=== PATIENT | female | born 1945 | race Caucasian/White ===

== ENCOUNTER 2022-05-01 08:14 | Outpatient (CLI) | payer MEDICARE, OTHER, SELFPAY ==
[2022-05-01 08:31] LABS: Basophils Absolute Auto 0.1 K/mm3 (0.0-0.1); Basophils Percent Auto 1.1 % (0.2-1.2); Eosinophils Absolute Auto 0.1 K/mm3 (0-0.3); Eosinophils Percent Auto 1.1 % (0-4.4); Hematocrit 33.1 % (37.0-47.0); Hemoglobin 11.1 g/dL (12.0-15.0); Immature Granulocyte Absolute 0.02 K/mm3 (0.00-0.031); Immature Granulocyte Percent A 0.3 % (0-0.5); Lymphocytes Absolute Auto 0.65 K/mm3 (0.9-3.2); Lymphocytes Percent Auto 10.6 % (18.3-44.2); Mean Corpuscular HGB Conc 33.5 g/dl (32-36); Mean Corpuscular Hemoglobin 31.7 pg (26-34); Mean Corpuscular Volume 94.6 fl (80-100); Monocytes Absolute Auto 1.1 K/mm3 (0.1-0.6); Neutrophils Absolute Auto 4.2 K/mm3 (1.3-6.7); Neutrophils Percent Auto 68.9 % (45.5-73.1); Platelet Count Result 359 k/mm3 (150-375); Red Cell Distribution Width 17.4 % (11.5-14.5); White Blood Count 6.1 K/mm3 (4.5-10.0)
[2022-05-01 11:03] LABS: Alanine Aminotransferase 22 U/L (6-35); Albumin Level 4.5 g/dL (3.5-5.1); Alkaline Phosphatase 74 U/L (38-126); Anion Gap 8 mmol/L (8-16); Aspartate Amino Transferase 39 U/L (14-36); Bilirubin,Total 0.6 mg/dL (0.2-1.3); Blood Urea Nitrogen 13 mg/dL (7-17); Calcium 9.3 mg/dL (8.4-10.2); Carbon Dioxide 29 mmol/L (22-30); Chloride 101 mmol/L (98-107); Estimated Glomerular Filt Rate > 60; Glucose 86 mg/dL (65-110); Potassium 3.6 mmol/L (3.4-5.0); Sodium 138 mmol/L (137-145)
== END 2022-05-01 08:15 | disposition home or self-care (01) ==
LOC: ANHLAB 08:14
PROVIDERS: Visit Provider Internal Medicine Hematology & Oncology
DX: C34.90 Malignant neoplasm of unspecified part of unspecified bronchus or lung (principal)
CPT/HCPCS: 36415; 80053; 85025

== ENCOUNTER 2022-05-03 08:40 | Outpatient (CLI) | payer MEDICARE, OTHER, SELFPAY ==
--- NOTE | ~2022-05-03 | NM_ITS ---
NM bone scan whole body INDICATION: Metastatic non-small cell lung cancer. History of malignant melanoma. TECHNIQUE: The patient was injected with 25 mCi Tc 99m HDP. Gamma camera images of the region of int erest and whole body were obtained. COMPARISON: Pet/CT dated 01/18/2011 FINDINGS: There is abnormal radiotracer uptake in the lower thoracic spine, possibly T11. There is mi ld symmetric uptake in the shoulders and knees, likely degenerative joint disease. There is a focus o f mild uptake in the left pelvis near the sacroiliac joint. IMPRESSION: 1: Moderate uptake in the lower thoracic spine, possibly T11. Mild focal uptake in the left pelvis n ear the sacroiliac joint. Findings are suspicious for metastatic disease. Recommend plain film correl ation. Reviewed, dictated and finalized at location A. TRICAL DESIGNER DRAFTER IMPRESSION: 1: Moderate uptake in the lower thoracic spine, possibly T11. Mild focal uptak e in the left pelvis near the sacroiliac joint. Findings are suspicious for met astatic disease. Recommend plain film correlation.
== END 2022-05-03 08:41 | disposition home or self-care (01) ==
PROVIDERS: PCP Family Medicine; Visit Provider Internal Medicine Hematology & Oncology
DX: C34.90 Malignant neoplasm of unspecified part of unspecified bronchus or lung (principal)
CPT/HCPCS: 78306; A9561

== ENCOUNTER 2022-05-04 12:58 | Outpatient (CLI) | payer MEDICARE, OTHER, SELFPAY ==
--- NOTE | ~2022-05-04 | CT_ITS ---
EXAMINATION: CT chest abdomen pelvis w con DATE: 05/04/2022 20:06 CONSUMER ADVOCATE INDICATION: Non-small cell lung cancer. TECHNIQUE: Computed tomography (CT) of the chest, abdomen, and pelvis was performed with 100 cc Omnip aque 350 intravenous contrast. The dose-length product was 504.39 mGy-cm. Automated exposure control and iterative reconstruction technique were employed. COMPARISON: Bone scan dated 05/03/2022 and pet/CT scan dated 01/18/2011 FINDINGS: CHEST CT: There is emphysema. There is an irregular shaped mass in the right upper lobe abutting the fissure me asuring 1.5 x 2.8 x 4.5 cm. There are patchy areas of groundglass opacification throughout the right lung. There is a 1.5 cm groundglass nodule in the right lower lobe, image 85. There are coarse inters titial changes of the right lower lobe. There is dependent atelectasis in the left lower lobe. There is a small left pleural effusion. No thoracic lymphadenopathy. There is a small hiatal hernia. ABDOMEN/PELVIS CT: The liver, spleen, pancreas, adrenal glands and right kidney are unremarkable. There is a small subce ntimeter hypovascular lesion of the left kidney, most likely benign cysts. There is diffuse atheroscl erosis of the aorta without evidence for aneurysm or dissection. Gallbladder is present. There are bi lateral enlarged external iliac chain lymph nodes, largest on the left measuring 1.7 x 1.4 cm. The bl adder is unremarkable. There is moderate colonic fecal loading. No obstruction. Small fat-containing umbilical hernia. There are multiple sclerotic lesions of the femurs proximally, bilaterally in the p genevieve and sacrum as well as multiple thoracic and lumbar vertebra, consistent with sclerotic metastas es. There is a sclerotic foci in the sternum. There are bilateral sclerotic lesions of the scapula an d proximal aspect of the left humerus. IMPRESSION: 1. Irregular shaped right upper lobe mass measuring 4.5 x 2.8 x 1.5 cm abutting the fissure, likely c orresponding to patient's known malignancy. 2: Patchy groundglass opacities throughout the right lung which may relate relate to small airway di sease, infection or metastatic disease. 3: Innumerable sclerotic lesions throughout the visualized osseous structures, consistent with widesp read sclerotic metastases. 4: Bilateral pelvic lymph node enlargement, possibly metastatic disease. 5: Emphysema. Reviewed, dictated and finalized at location A. UMER ADVOCATE IMPRESSION: 1. Irregular shaped right upper lobe mass measuring 4.5 x 2.8 x 1.5 cm abutting the fissure, likely corresponding to patient's known malignancy. 2: Patchy groundglass opacities throughout the right lung which may relate rel ate to small airway disease, infection or metastatic disease. 3: Innumerable sclerotic lesions throughout the visualized osseous structures, consistent with widespread sclerotic metastases. 4: Bilateral pelvic lymph node enlargement, possibly metastatic disease. 5: Emphysema.
[2022-05-04 13:26] LABS: Estimated Glomerular Filt Rate > 60
== END 2022-05-04 12:59 | disposition home or self-care (01) ==
PROVIDERS: PCP Family Medicine; Visit Provider Internal Medicine Hematology & Oncology
DX: C34.90 Malignant neoplasm of unspecified part of unspecified bronchus or lung (principal); J43.9 Emphysema, unspecified; R91.8 Other nonspecific abnormal finding of lung field
CPT/HCPCS: 71260; 74177; Q9967

== ENCOUNTER 2022-06-11 09:26 | Outpatient (CLI) | payer MEDICARE, OTHER, SELFPAY ==
[2022-06-11 13:38] LABS: Cholesterol 172 mg/dL (0-200); HDL Direct 46 mg/dL; Triglycerides 112 mg/dL (<150)
[2022-06-11 13:49] LABS: LDL Cholesterol Direct 90 mg/dL
== END 2022-06-11 09:27 | disposition home or self-care (01) ==
LOC: ANHLAB 09:29
PROVIDERS: PCP Internal Medicine Hematology & Oncology; Visit Provider Internal Medicine Cardiovascular Disease
DX: E78.5 Hyperlipidemia, unspecified (principal)
CPT/HCPCS: 36415; 80061

== ENCOUNTER 2022-08-06 06:38 | Outpatient (CLI) | payer MEDICARE, OTHER, SELFPAY ==
--- NOTE | ~2022-08-06 | CT_ITS ---
EXAMINATION: CT chest abdomen pelvis w con DATE: 08/06/2022 07:10 INDICATION: Metastatic non-small cell lung cancer. TECHNIQUE: Computed tomography (CT) of the chest, abdomen, and pelvis was performed with 100 mL Omnip aque 350 intravenous contrast. Automated exposure control and iterative reconstruction technique were employed. The dose-length product was 404.84 mGy-cm. COMPARISON: CT 05/04/22, PET/CT 01/18/11 FINDINGS: CHEST CT: There is moderate emphysema. A calcified right lung nodule and calcified right hilar lymph nodes are consistent with old granulomatous disease. There are scattered groundglass opacities in all lobes. Th ere are small airspace opacities in left lower lobe. There is mild scarring at the lung apices. There is a 4.6 x 3.1 cm mass in posterior segment right upper lobe, stable from 05/04/2022. There is a smal l left pleural effusion. There is a right internal jugular port with tip in superior vena cava. The h eart is small. There are coronary artery calcifications. No pericardial effusion. There are no pathol ogically enlarged lymph nodes. There is a small sliding hiatal hernia. There are multiple scattered s clerotic lesions of bone. ABDOMEN/PELVIS CT: The liver, gallbladder, spleen, pancreas, adrenal glands, are normal. There is cortical thinning of t he kidneys. There are cysts in left kidney measuring up to 14 mm. The appendix is not visualized. The re are no dilated loops of bowel. There are no pathologically enlarged lymph nodes. There is no free intraperitoneal fluid. There are surgical clips in right inguinal region. There are multiple scattere d sclerotic lesions of bone. IMPRESSION: 1. Right lung mass, stable from 05/04/2022, consistent with primary bronchogenic carcinoma and treatme nt changes. 2. Small left pleural effusion. 3. Multifocal lung disease, likely infection. 4. Scattered sclerotic lesions of bone, stable from 05/04/2022 and new from 01/18/2011, consistent with metastatic disease. Reviewed, dictated and finalized at location A. CHOOL SUBSTITUTE TEACHER IMPRESSION: 1. Right lung mass, stable from 05/04/2022, consistent with primary bronchogenic carcinoma and treatment changes. 2. Small left pleural effusion. 3. Multifocal lung disease, likely infection. 4. Scattered sclerotic lesions of bone, stable from 05/04/2022 and new from 01/18, consistent with metastatic disease.
--- NOTE | ~2022-08-06 | NM_ITS ---
EXAMINATION: NM bone scan whole body DATE: 08/06/2022 11:44 INDICATION: Metastatic non-small cell lung cancer TECHNIQUE: 27.2 mCi Tc-99m HDP was administered intravenously. Delayed whole-body scintigrams were o btained. COMPARISON: Bone scan dated 05/03/[address] chest, abdomen and pelvis dated 08/06/2022 and 05/04/2022 FINDINGS: No interval change in increased uptake associated with a sclerotic lesion at the T11 vertebral body w ith associated with a small sclerotic lesion in the left innominate bone The inferior aspect of the sacral joint which correspond to unchanged small sclerotic bone lesions on prior CT. No abnormal uptake associated with the many additional small sclerotic bone lesions throug hout the axial and appendicular skeleton. No new lesions identified. IMPRESSION: 1. Unchanged mild uptake which with chronic sclerotic lesions at T11 and in the left innominate bone consistent with chronic metastatic disease. No new bone lesions identified and there are many additio nal sclerotic likely metastatic bone lesions evident on prior CT which remain without increased uptak e. Reviewed, dictated and finalized at location A. OLE TACKER IMPRESSION: 1. Unchanged mild uptake which with chronic sclerotic lesions at T11 and in the left innominate bone consistent with chronic metastatic disease. No new bone l esions identified and there are many additional sclerotic likely metastatic bon e lesions evident on prior CT which remain without increased uptake.
== END 2022-08-06 06:39 | disposition home or self-care (01) ==
PROVIDERS: PCP Internal Medicine Hematology & Oncology; Visit Provider Internal Medicine Hematology & Oncology
DX: C34.90 Malignant neoplasm of unspecified part of unspecified bronchus or lung (principal); J90 Pleural effusion, not elsewhere classified; R91.8 Other nonspecific abnormal finding of lung field; R93.7 Abnormal findings on diagnostic imaging of other parts of musculoskeletal system
CPT/HCPCS: 71260; 74177; 78306; A9503; Q9967

== ENCOUNTER 2022-12-05 09:27 | Outpatient (CLI) | payer MEDICARE, OTHER, SELFPAY ==
--- NOTE | ~2022-12-05 | NM_ITS ---
EXAMINATION: NM bone scan whole body DATE: 12/05/2022 14:03 INDICATION: Cancer metastatic to bone TECHNIQUE: 25.5 mCi Tc-99m HDP was administered intravenously. Delayed whole-body scintigrams were o btained. COMPARISON: Bone scan dated 08/06/[address] dated 12/05/2022 FINDINGS: Persistent foci of increased uptake corresponding to sclerotic lesions in the T11 vertebral body and along the left sacroiliac joint. The remaining of numerous scattered sclerotic bone lesions without c orrelate on the bone scan consistent with treated metastatic disease. IMPRESSION: 1. Persistent mild uptake associated with sclerotic likely metastatic lesions at T11 and along the le ft sacroiliac joint. Many additional sclerotic likely chronic treated metastatic lesions seen on CT r emain occult on bone scan. No new lesions identified. Reviewed, dictated and finalized at location B. IMPRESSION: 1. Persistent mild uptake associated with sclerotic likely metastatic lesions a t T11 and along the left sacroiliac joint. Many additional sclerotic likely chr onic treated metastatic lesions seen on CT remain occult on bone scan. No new l esions identified.
--- NOTE | ~2022-12-05 | CT_ITS ---
Clinical Indication: Metastatic non-small cell lung carcinoma CT Scan of the Chest with Contrast: Technique: Contiguous sections were acquired throughout the chest after intravenous administration of 75 cc of Omnipaque 350. Dose reduction technique was used on this scan by utilizing automated exposu re control and iterative reconstruction technique. The dose-length product (DLP) was 151.50 mGy-cm. COMPARISON: 08/06/2022 Findings: There is no evidence of any significant mediastinal, hilar or axillary lymphadenopathy. There is no f illing defect in the pulmonary arterial tree to suggest pulmonary embolus. There is no evidence of ao rtic dissection or aneurysm. Small hiatal hernia noted. Minimal left pleural effusion present. No right pleural effusion. No pericardial effusion. There is evidence of prior left upper lobectomy. There is stable irregular somewhat masslike consolid ation in the posterior right upper lobe, which could reflect post therapy change/treated neoplasm. Th ere is a new 9 mm spiculated nodule in the right lower lobe (axial image 76). There is irregular dens ity in the left lower lobe, somewhat similar to prior exam. There is moderate emphysema. Images through the upper abdomen reveal no abnormalities. Scattered sclerotic osseous lesions are stable from prior exam. Impression: 9 mm spiculated nodule right lower lobe, new from prior exam. Given history, suspicious for metastati c lesion. Stable irregular masslike consolidation right upper lobe, which could reflect posttreatment change/tr eated neoplasm. Moderate emphysema with stable irregular airspace opacities in the left lower lobe, which could refle ct scarring or other chronic postinflammatory change. Stable sclerotic osseous lesions, suggestive of treated osseous metastatic disease. Status post left upper lobectomy. Minimal left pleural effusion. Reviewed, dictated and finalized at location . Impression: 9 mm spiculated nodule right lower lobe, new from prior exam. Given history, luna spicious for metastatic lesion. Stable irregular masslike consolidation right upper lobe, which could reflect p osttreatment change/treated neoplasm. Moderate emphysema with stable irregular airspace opacities in the left lower l obe, which could reflect scarring or other chronic postinflammatory change. Stable sclerotic osseous lesions, suggestive of treated osseous metastatic dise ase. Status post left upper lobectomy. Minimal left pleural effusion.
== END 2022-12-05 09:28 | disposition home or self-care (01) ==
LOC: ANHIMG 09:28
PROVIDERS: PCP Internal Medicine Hematology & Oncology; Visit Provider Internal Medicine Hematology & Oncology
DX: C34.90 Malignant neoplasm of unspecified part of unspecified bronchus or lung (principal); C79.51 Secondary malignant neoplasm of bone; J43.9 Emphysema, unspecified
CPT/HCPCS: 71260; 78306; A9503; Q9967

== ENCOUNTER 2022-12-25 07:08 | Outpatient (CLI) | payer MEDICARE, OTHER, SELFPAY ==
--- NOTE | 2022-12-25 07:36 | ECHO_ITS ---
Patient Info Name: Elzbieta Coy Age: 77 years : 1945 Gender: Female Ht: 66 in Wt: 141 lbs BSA: 1.73 m2 HR: 75 bpm BP: 133 / 80 mmHg Technical Quality: Fair Exam Date: 12/25/2022 7:50 AM Exam Location: [facility] Patient Status: Outpatient Admit Date: 12/25/2022 Staff Ordering Physician: Bal Mccullough DO Lock Technician: Radha Delarosa RDCS Attending Provider: Bal Mccullough DO Referring Physician: Jamel CARVAJAL; Exam Type: CA echo doppler color flow Study Info Indications R60.0 - Localized edema Complete two-dimensional, color flow and Doppler transthoracic echocardiogram is performed. Summary 1. Complete two-dimensional, color flow and Doppler transthoracic echocardiogram is performed. 2. Left ventricular chamber dimension is normal. 3. Left ventricular systolic function is normal, estimated at 65-70%. 4. The left ventricular diastolic function is grade I diastolic dysfunction. 5. E/e' 10 is mildly elevated. 6. Global longitudinal strain is abnormal at -13.0%. 7. There is mild aortic valve sclerosis. 8. The mitral valve has moderately calcified leaflets and moderate calcified annulus. 9. There is trace tricuspid valve regurgitation. 10. No pulmonary hypertension, estimated pulmonary arterial systolic pressure is 34 mmHg. 11. There is trace pulmonic regurgitation. 12. There is trace to small circumferential (right sided) pericardial effusion. Left Ventricle E/e' 10 is mildly elevated. Global longitudinal strain is abnormal at -13.0%. Left ventricular chamber dimension is normal. Left ventricular systolic function is normal, estimated at 65-70%. The left ventricular diastolic function is grade I diastolic dysfunction. Right Ventricle Right ventricular chamber dimension is normal. Right ventricular systolic function is normal. Left Atria Left atrial chamber dimension is normal. Right Atria Right atrial chamber dimension is normal. Aortic Valve The aortic valve is trileaflet. There is mild aortic valve sclerosis. There is no aortic valve stenosis. There is no aortic valve regurgitation. Pulmonic Valve There is trace pulmonic regurgitation. Mitral Valve The mitral valve has moderately calcified leaflets and moderate calcified annulus. There is no mitral valve stenosis. There is no mitral valve regurgitation. Tricuspid Valve There is trace tricuspid valve regurgitation. No pulmonary hypertension, estimated pulmonary arterial systolic pressure is 34 mmHg. Pericardium/Pleural There is trace to small circumferential (right sided) pericardial effusion. No cardiac tamponade. Inferior Vena Cava Normal inferior vena cava with >50% collapse upon inspiration consistent with normal right atrial pressure, 5 mmHg. Aorta The aortic root size at the sinus of Valsalva is normal. Left Ventricular Outflow Tract Name Value Normal LVOT 2D LVOT Diameter 1.9 cm LVOT Doppler LVOT Peak Gradient 4 mmHg LVOT Mean Gradient 2 mmHg LVOT VTI 20 cm LVOT VTI/AV VTI Ratio 0.8 LVOT Stroke Volume 54 ml LVOT CO 4
== END 2022-12-25 07:09 | disposition home or self-care (01) ==
LOC: ANHCARD 07:09
PROVIDERS: PCP Family Medicine; Visit Provider Internal Medicine Cardiovascular Disease
DX: R60.0 Localized edema (principal)
CPT/HCPCS: 93306

== ENCOUNTER 2023-02-25 09:12 | Outpatient (CLI) | payer MEDICARE, OTHER, SELFPAY ==
--- NOTE | ~2023-02-25 | NM_ITS ---
EXAMINATION: NM bone scan whole body DATE: 02/25/2023 13:20 INDICATION: Metastatic non-small cell lung cancer TECHNIQUE: 25.5 mCi Tc-99m HDP was administered intravenously. Delayed whole-body scintigrams were o btained. COMPARISON: Bone scan dated 12/05/2022, CT dated 08/06/2022 and 02/25/2023 FINDINGS: Persistent focus of moderate uptake along the left sacroiliac joint and T11 vertebral body associated with sclerotic lesions on CT dated 08/06/2022. There is a new focus of increased uptake at the L4 vert ebral body with corresponding sclerotic bone lesion on prior CT. There are multiple additional sclero tic bone lesions on CT which remain without increased uptake on the current study consistent with lor ated metastatic disease. IMPRESSION: 1. Unchanged uptake in the T11 vertebral body, along the left sacroiliac joint and new focus of incre ased uptake at the L4 spinous processes, each with corresponding sclerotic bone lesions consistent wi th metastatic disease. The increased uptake at these lesions in particular the new uptake at L4 are c oncerning for recurrent disease given that many of the additional sclerotic bone lesion seen on CT re maining without discernible uptake. Reviewed, dictated and finalized at location A. IMPRESSION: 1. Unchanged uptake in the T11 vertebral body, along the left sacroiliac joint and new focus of increased uptake at the L4 spinous processes, each with corres ponding sclerotic bone lesions consistent with metastatic disease. The increase d uptake at these lesions in particular the new uptake at L4 are concerning for recurrent disease given that many of the additional sclerotic bone lesion seen on CT remaining without discernible uptake.
--- NOTE | ~2023-02-25 | CT_ITS ---
EXAMINATION:CT diagnostic chest w con DATE: 02/25/2023 09:48 INDICATION: Metastatic non-small cell lung cancer. TECHNIQUE: Computed tomography (CT) of the chest was performed with 75 mL Omnipaque 350 intravenous c ontrast. Automated exposure control and iterative reconstruction technique were employed. The dose-le ngth product (DLP) was 148.29 mGy-cm. COMPARISON: Chest CT 12/05/2022, 08/06/22 FINDINGS: There is moderate emphysema. There are changes of left upper lobectomy. A calcified right l kylah nodule and calcified hilar lymph nodes are consistent with old granulomatous disease. There is ch ronic peripheral septal thickening in the lungs. There is a 6 mm nodule in right lower lobe, improved from 9 mm on 12/05/2022. There are groundglass opacities in the lower lobes. There are chronic airspac e opacities with volume loss involving posterior segment right upper lobe. There are small pleural ef fusions. The heart size is normal. There are coronary artery calcifications. No pericardial lesion. T here is a small sliding hiatal hernia. There is a right internal jugular port with tip in superior ve na cava. There are scattered sclerotic lesions of bone including the spine, scapulae, and sternum. Th ere is severe thoracic spondylosis. IMPRESSION: 1. Stable airspace opacities with volume loss in posterior segment right upper lobe, consistent with radiation fibrosis. 2. Moderate emphysema. 3. Stable sclerotic bone lesions, consistent with metastatic disease. 4. Stable small pleural effusions. 5. Right lung lower lobe nodule and bilateral lower lobe groundglass opacities with interval improvem ent, likely infection. Reviewed, dictated and finalized at location A. IMPRESSION: 1. Stable airspace opacities with volume loss in posterior segment right upper lobe, consistent with radiation fibrosis. 2. Moderate emphysema. 3. Stable sclerotic bone lesions, consistent with metastatic disease. 4. Stable small pleural effusions. 5. Right lung lower lobe nodule and bilateral lower lobe groundglass opacities with interval improvement, likely infection.
[2023-02-25 09:41] LABS: Estimated Glomerular Filt Rate > 60
== END 2023-02-25 09:13 | disposition home or self-care (01) ==
LOC: ANHIMG 09:17
PROVIDERS: PCP Family Medicine; Visit Provider Internal Medicine Hematology & Oncology
DX: C34.90 Malignant neoplasm of unspecified part of unspecified bronchus or lung (principal); J43.9 Emphysema, unspecified; J90 Pleural effusion, not elsewhere classified; R91.8 Other nonspecific abnormal finding of lung field
CPT/HCPCS: 71260; 78306; A9503; Q9967

== ENCOUNTER 2023-05-13 09:24 | Outpatient (CLI) | payer MEDICARE, OTHER, SELFPAY ==
--- NOTE | ~2023-05-13 | CT_ITS ---
Clinical Indication: Metastatic non-small cell lung cancer CT Scan of the Chest with Contrast: Technique: Contiguous sections were acquired throughout the chest after intravenous administration of 35 cc of Omnipaque 350. Dose reduction technique was used on this scan by utilizing automated exposu re control and iterative reconstruction technique. The dose-length product (DLP) was 164.60 mGy-cm. COMPARISON: 02/25/2023 Findings: There is no evidence of any significant mediastinal, hilar or axillary lymphadenopathy. There is no f illing defect in the pulmonary arterial tree to suggest pulmonary embolus. There is no evidence of ao rtic dissection or aneurysm. There are atherosclerotic calcifications of the aorta. Minimal left pleural effusion noted. No right pleural effusion. No pericardial effusion. Irregular, spiculated area of consolidation the right upper lobe is essentially stable from prior exa m (axial image 52). Stable emphysematous change and mild chronic interstitial change. Images through the upper abdomen reveal no abnormalities. Multiple scattered sclerotic osseous lesion s are similar to prior exam. Impression: Stable 4.5 cm area of irregular/spiculated consolidation the right upper lobe, which could reflect ne oplastic lesion versus treated disease. Stable sclerotic osseous lesions, consistent with osseous metastatic disease, possibly treated. Stable emphysema and mild chronic interstitial change. Minimal left pleural effusion. Reviewed, dictated and finalized at location M. ER DEMOLDER Impression: Stable 4.5 cm area of irregular/spiculated consolidation the right upper lobe, which could reflect neoplastic lesion versus treated disease. Stable sclerotic osseous lesions, consistent with osseous metastatic disease, p ossibly treated. Stable emphysema and mild chronic interstitial change. Minimal left pleural effusion.
== END 2023-05-13 09:25 | disposition home or self-care (01) ==
PROVIDERS: PCP Family Medicine; Visit Provider Internal Medicine Hematology & Oncology
DX: C34.90 Malignant neoplasm of unspecified part of unspecified bronchus or lung (principal); J43.9 Emphysema, unspecified; R91.8 Other nonspecific abnormal finding of lung field
CPT/HCPCS: 71260; Q9967

== ENCOUNTER 2023-07-01 10:41 | Outpatient (CLI) | payer MEDICARE, OTHER, SELFPAY ==
--- NOTE | ~2023-07-01 | XR_ITS ---
Clinical Indication: Nausea PA and lateral views of the chest: Comparison: None Findings: Right-sided Mediport in place. There is a somewhat streaky airspace opacity in the right up per lobe.. Cardiomediastinal silhouette is within normal limits. Sclerotic osseous lesions are noted scattered in the spinal lateral view. Impression: Somewhat streaky right upper lobe airspace opacity, indeterminate. This could reflect post therapy ch grayson/treated disease and/or scarring, however underlying active neoplasm or pneumonia are not exclude d. Correlate clinically. Scattered sclerotic osseous lesions in the spine on lateral view, which could reflect treated metasta tic osseous disease. Reviewed, dictated and finalized at location M. CIPLE SOFTWARE ENGINEER Impression: Somewhat streaky right upper lobe airspace opacity, indeterminate. This could r eflect post therapy change/treated disease and/or scarring, however underlying active neoplasm or pneumonia are not excluded. Correlate clinically. Scattered sclerotic osseous lesions in the spine on lateral view, which could r eflect treated metastatic osseous disease.
--- NOTE | ~2023-07-01 | XR_ITS ---
EXAM: XR abdomen obstructive series DATE: 07/01/2023 11:09 HISTORY: CONSTIPATION . COMPARISON: CT cap 08/06/2022. FINDINGS: Senescent change and left basilar scar. Normal bowel gas pattern. Enlarged liver. Vascular calcifications. Multiple sclerotic lesions in the bones. Degenerative changes in the spine. IMPRESSION: No radiographic evidence of obstruction or ileus.. Reviewed, dictated and finalized at location K. MAKER
== END 2023-07-01 10:42 | disposition home or self-care (01) ==
PROVIDERS: PCP Family Medicine; Visit Provider Internal Medicine Hematology & Oncology
DX: K59.00 Constipation, unspecified (principal); R91.8 Other nonspecific abnormal finding of lung field
CPT/HCPCS: 36415; 71046; 74019; 80047; 80053; 85025; 86480; 96413; J9271

== ENCOUNTER 2023-07-27 16:01 | Emergency (ER) | payer MEDICARE, OTHER, SELFPAY ==
[2023-07-27] VITALS (42 sets, daily range): BP systolic 100–170; BP diastolic 55–123; PULSE 76–125; RESP 13–34; TEMP 36.6; O2SAT 96–100
--- NOTE | ~2023-07-27 | XR_ITS ---
EXAMINATION: XR chest 2V Exam Date/Time: 07/27/2023 16:35 [employer]GRAM [employer]GER [employer] HISTORY: weakness, n/v/d, current chemo for bone cancer Comparison: 07/01/2023. RESULT: Lines, tubes, and devices: Right chest port, in good position. Lungs and pleura: Emphysematous/senescent change. Right upper lung scar. Bilateral costophrenic angl e blunting. Cardiomediastinal silhouette: Stable. Other: No acute osseous or upper abdominal finding. Sclerotic vertebral metastases. IMPRESSION: Small bilateral effusions versus chronic pleural blunting. Reviewed, dictated and finalized at location K. [employer]
--- NOTE | 2023-07-27 16:16 | ECG_ITS ---
Measurements Intervals [place] Rate: 108 P: 91 CA: 145 QRS: 75 QRSD: 77 T: 89 QT: 277 QTc: 372 Interpretive Statements SINUS TACHYCARDIA BASELINE ARTIFACT POSSIBLE LEFT ATRIAL ENLARGEMENT [-0.1mV P-WAVE IN V1/V2] LOW QRS VOLTAGE IN PRECORDIAL LEADS [QRS DEFLECTION < 1.0 mV IN CHEST LEADS] ABNORMAL ECG SEPTAL MYOCARDIAL INFARCTION , OF INDETERMINATE AGE [40+ ms Q WAVE IN V1/V2] NO PREVIOUS ECG AVAILABLE FOR COMPARISON Electronically Signed On 07-28-2023 18:01:14 TAX APPRAISER by Joaquin Infante M.D.
[2023-07-27 17:03] LABS: Basophils Percent Auto 0.6 % (0.2-1.2); Eosinophils Absolute Auto 0.1 K/mm3 (0-0.3); Eosinophils Percent Auto 0.9 % (0-4.4); Hemoglobin 13.4 g/dL (12.0-15.0); Immature Granulocyte Absolute 0.02 K/mm3 (0.00-0.031); Immature Granulocyte Percent A 0.3 % (0-0.5); Lymphocytes Absolute Auto 0.53 K/mm3 (0.9-3.2); Lymphocytes Percent Auto 7.9 % (18.3-44.2); Mean Corpuscular HGB Conc 36.2 g/dl (32-36); Mean Corpuscular Hemoglobin 31.5 pg (26-34); Mean Corpuscular Volume 86.9 fl (80-100); Mean Platelet Volume 9.7 fl (7.4-10.4); Monocytes Absolute Auto 0.2 K/mm3 (0.1-0.6); Monocytes Percent Auto 2.7 % (2.6-8.5); Neutrophils Absolute Auto 5.8 K/mm3 (1.3-6.7); Neutrophils Percent Auto 87.6 % (45.5-73.1); Platelet Count Result 265 k/mm3 (150-375); Red Blood Count 4.26 M/mm3 (4.2-5.4); Red Cell Distribution Width 14.6 % (11.5-14.5); White Blood Count 6.7 K/mm3 (4.5-10.0)
[2023-07-27 17:12] LABS: Alanine Aminotransferase 20 U/L (6-35); Albumin Level 4.5 g/dL (3.5-5.1); Alkaline Phosphatase 75 U/L (38-126); Anion Gap 7 mmol/L (8-16); Aspartate Amino Transferase 36 U/L (14-36); Bilirubin,Total 1.5 mg/dL (0.2-1.3); Blood Urea Nitrogen 19 mg/dL (7-17); Carbon Dioxide 26 mmol/L (22-30); Chloride 98 mmol/L (98-107); Estimated CRCL calculation 60 ml/min; Estimated Glomerular Filt Rate > 60; Glucose 111 mg/dL (65-110); Potassium 3.6 mmol/L (3.4-5.0); Sodium 131 mmol/L (137-145)
--- NOTE | 2023-07-27 17:33 | ED.WEAKNESS ---
HPI - Weakness General Chief complaint: Weakness Stated complaint: weakness Time Seen by Provider: 07/27/23 16:20 History of Present Illness HPI Narrative: Patient is a 77-year-old female with a history of lung cancer on chemotherapy presenting with weakness. Patient states that she has been nauseated with no appetite since her chemotherapy treatment on Saturday. States that she has actually had the symptoms for many months but she has not brought them up to her oncologist. States that she has only been able to eat a small amount of Jell-O this week. States that she has had several episodes of loose stools as well as an episode of vomiting. Her sister is concerned as she is increasingly weak and is now having trouble getting around. Patient denies pain. No chest pain, abdominal pain. States that she does sometimes feel short of breath. No leg swelling. Related Data Home Medications Medication Instructions Recorded Confirmed aspirin 81 mg tablet 81 mg PO DAILY 05/10/22 07/22/23 biotin 10,000 mcg capsule 10,000 mcg PO DAILY 05/10/22 07/22/23 calcium carb-ergocalciferol (vit 600 tablet PO DAILY 05/10/22 07/22/23 D2) 600 mg calcium-200 unit tablet folic acid 1 mg tablet 1 mg PO DAILY 05/10/22 07/22/23 omega-3 fatty acids-vitamin E 1,000 cap PO DAILY 05/10/22 07/22/23 1,000 mg capsule vit C 250 mg-vit E 90 mg-zinc 40 1 tablet PO BID 05/10/22 07/22/23 mg-copper 1 cp-oacfud-zicxfi capsule (PreserVision AREDS-2) pembrolizumab 25 mg/mL intravenous 400 mg IV .q3 weeks 05/17/22 07/22/23 solution (Keytruda) potassium chloride 20 mEq 20 meq PO DAILY 06/11/22 07/22/23 tablet,extended release Allergies Allergy/AdvReac Type Severity Reaction Status Date / Time No Known Allergies Allergy Verified 07/27/23 16:23 Review of Systems Review of Systems: All systems reviewed & are unremarkable except as noted in HPI and below PMFSH Past Medical History Medical History Anemia due to chemotherapy Benign essential HTN Emphysema lung HH (hiatus hernia) History of tobacco abuse Lung cancer Left and later R, most recently L agan. Malignant melanoma of right thigh Surgical History Surgical History History of appendectomy History of melanoma excision S/P partial lobectomy of lung Family History Family History Other Diabetes mellitus Hypertension Social History Social History Social History: Single Smoking packs per day: 0.5 Smoking cigarettes per day: 10.0 Years smoked: 30 Smoking pack-years: 15.00 Smoking status: Former smoker Tobacco type: cigarettes Second hand tobacco smoke exposure: No Smoking end date: 03/12/11 Alcohol intake: never Substance use: never Substance use type: does not use Living arrangements: with family Additional living arrangements comments: Pt lives with her sister. Occupation/Education: retired Gender identity (if verbalized by the patient): Female Sexual Orientation (if Verbalized by the Patient): Straight or Heterosexual Spiritual care concerns: No Exam Narrative: GENERAL: Frail, nontoxic, no acute distress HEAD: Normocephalic, atraumatic. EYES: PERRLA and EOMI. ENT: Mucous membranes moist. NECK: Supple. CHEST: no respiratory distress, diminished breath sounds bilaterally; port upper R chest HEART: Regular rate and rhythm ABDOMEN: Soft, nontender, nondistended EXTREMITIES: Normal range of motion. No edema. SKIN: Warm, dry, no rash. NEURO: No focal deficits. Alert and oriented x3. PSYCH: Normal mood and affect. Course Vital Signs Vital signs: Vital Signs Temperature 97.9 F 07/27/23 16:11 Pulse Rate 125 H 07/27/23 16:11 Respiratory Rate 20 07/27/23 16:11 Blood Pressure 138/79
[2023-07-27 17:43] LABS: Lipase 134 U/L (23-300); Magnesium 2.8 mg/dL (1.6-2.3)
[2023-07-27] MEDS: SODIUM CHLORIDE 0.9% IV 1,000 ML 999 ML IV CONT ×2 (17:46→18:32)
[2023-07-27] MEDS: ONDANSETRON INJ 4 MG/2 ML VIAL IV PUSH (17:46)
[2023-07-27 17:52] LABS: INR 0.9; Partial Thromboplastin Time 33.2 SECONDS (22.3-36.8)
[2023-07-27 17:56] LABS: NT Pro B Type Natriuretic Pept 84 pg/mL (19.9-100); Troponin I < 0.012 ng/mL (0.000-0.034)
[2023-07-27 18:31] LABS: Appearance Urine Clear (Clear); Bacteria Urine None Seen /hpf; Bilirubin Urine Negative (Negative); Blood Urine Negative (Negative); Color Urine Yellow (Yellow); Glucose Urine UA Negative (Negative); Ketones Urine 1+ mg/dL (Negative); Leukocyte Esterase Ur Trace LEU/UL (Negative); Nitrate Urine Negative (Negative); Non Pathogenic Casts 0-2; Protein Urine Negative (Negative); RBC Urine 0-2 /hpf (0-2); Specific Grav Ur 1.014 (1.001-1.035); Squamous Epithelial Cell Urine None seen /hpf (Few); Urobilinogen Urine 0.2 mg/dL (<2.0); WBC Urine 0-5 /hpf
[2023-07-27 18:40] LABS: Add Urine Microscopic? YES
[2023-07-27 18:45] LABS: Influenza A QL RT-PCR Negative (Negative); Influenza B QL RT-PCR Negative (Negative); RSV RNA, RT-PCR Negative (Negative); SARS-CoV-2 RNA PCR Negative (Negative)
--- NOTE | 2023-07-27 19:00 | PC.NURSE ---
RN bedside report given by HEBER Lake to HEBER Ramirez. Pt a+ox4, no distress needed. Pt wheeled to restroom at this time. Pt ambulated from wheelchair in the door way to toilet without difficulty. Pt returned to bed at this time. No current needs.
[2023-07-27 20:43] LABS: Troponin I < 0.012 ng/mL (0.000-0.034)
--- NOTE | 2023-07-27 21:15 | PC.NURSE ---
Pt PO challenged with apple sauce, crackers, and juice. Pt able to keep those down and feels ok. No nausea noted by pt at this time.
== END 2023-07-27 21:42 | disposition home or self-care (01) ==
PROVIDERS: Emergency Medicine; Emergency Provider Emergency Medicine; PCP Family Medicine
DX: R11.2 Nausea with vomiting, unspecified (principal); R63.0 Anorexia; Z68.21 Body mass index [BMI] 21.0-21.9, adult; C34.92 Malignant neoplasm of unspecified part of left bronchus or lung; C79.51 Secondary malignant neoplasm of bone; R06.02 Shortness of breath; D64.81 Anemia due to antineoplastic chemotherapy; I10 Essential (primary) hypertension; J43.9 Emphysema, unspecified; Z85.820 Personal history of malignant melanoma of skin; Z87.891 Personal history of nicotine dependence; Z90.2 Acquired absence of lung [part of]; Z79.60 Long term (current) use of unspecified immunomodulators and immunosuppressants; Z79.82 Long term (current) use of aspirin; R94.31 Abnormal electrocardiogram [ECG] [EKG]; R00.0 Tachycardia, unspecified
CPT/HCPCS: 36415; 71046; 80053; 81001; 83690; 83735; 83880; 84484; 85025; 85610; 85730; 87637; 93005; 96361; 96374; 99284; J2405; J7030

== ENCOUNTER 2023-08-26 08:52 | Outpatient (CLI) | payer MEDICARE, OTHER, SELFPAY ==
--- NOTE | ~2023-08-26 | CT_ITS ---
EXAMINATION:CT diagnostic chest w con DATE: 08/26/2023 09:19 INDICATION: Metastatic non-small cell lung cancer. TECHNIQUE: Computed tomography (CT) of the chest was performed with 75 mL Omnipaque 350 intravenous c ontrast. Automated exposure control and iterative reconstruction technique were employed. The dose-le ngth product (DLP) was 141.67 mGy-cm. COMPARISON: Chest CT 05/13/2023 FINDINGS: There is severe emphysema. There is mild atelectasis bilaterally. There are airspace opacit ies in posterior segment right upper lobe with architectural distortion, consistent with radiation fi brosis. A calcified right lung nodule and calcified right hilar lymph nodes are consistent with old g ranulomatous disease. There is mild scarring at the lung apices. There are changes of left upper lobe ctomy. There are trace right and small left pleural effusions. The heart size is normal. No pericardi al effusion. There are coronary artery calcifications. There is a small sliding hiatal hernia. Aortic atherosclerosis is noted. There is a right internal jugular port with tip in superior vena cava. The re are multiple scattered sclerotic lesions of bone, consistent with metastatic disease. IMPRESSION: 1. Stable osseous metastatic disease. 2. Stable small left pleural effusion. 3. Severe emphysema. Reviewed, dictated and finalized at location E.
== END 2023-08-26 08:53 | disposition home or self-care (01) ==
LOC: ANHIMG 08:55
PROVIDERS: PCP Family Medicine; Referring Provider Nurse Practitioner Family; Visit Provider Internal Medicine Hematology & Oncology
DX: C34.90 Malignant neoplasm of unspecified part of unspecified bronchus or lung (principal); J43.9 Emphysema, unspecified; J90 Pleural effusion, not elsewhere classified
CPT/HCPCS: 71260; Q9967

== ENCOUNTER 2023-10-12 10:18 | Emergency (ER) | payer MEDICARE, OTHER, SELFPAY ==
[2023-10-12] VITALS (33 sets, daily range): BP systolic 113–144; BP diastolic 61–79; PULSE 66–122; RESP 12–37; TEMP 36.8; O2SAT 98–100
--- NOTE | ~2023-10-12 | CT_ITS ---
EXAMINATION: CT brain wo con DATE: 10/12/2023 11:15 INDICATION: Multiple falls. Headache and dizziness. Generalized weakness. TECHNIQUE: Computed tomography (CT) of the head was performed without intravenous contrast. The mA wa s adjusted according to patient size. Iterative reconstruction technique was employed. Exam dose: 60 5.33 mGy-cm total exam DLP. COMPARISON: None FINDINGS: Prominent bilateral carotid siphon internal carotid artery calcifications. There is nonspecific diminished attenuation of the cerebral white matter, likely due to chronic small vessel ischemic changes. No intracranial mass lesion or hemorrhage. Lacunar infarct right thalamus. No other cerebrovascular accident is evident. No midline shift or mas s defect. No subdural or epidural hematoma. No fracture of the cranial vault. There are several osteosclerotic foci of the cranial vault; osteosc lerotic metastases are not excluded. Consider radionuclide bone scan if clinically appropriate. IMPRESSION: No skull fracture or acute traumatic intracranial finding is evident Several osteosclerotic lesions of the skull; osseous chronic metastases are not excluded. Consider ra dionuclide bone scan as clinically appropriate Cerebral atherosclerosis and chronic small vessel ischemic changes in the cerebral white matter Lacunar infarct of right thalamus Reviewed, dictated and finalized at [facility]. Reviewed, dictated and finalized at location A. IMPRESSION: No skull fracture or acute traumatic intracranial finding is evide nt Several osteosclerotic lesions of the skull; osseous chronic metastases are not excluded. Consider radionuclide bone scan as clinically appropriate Cerebral atherosclerosis and chronic small vessel ischemic changes in the cereb ral white matter Lacunar infarct of right thalamus
--- NOTE | ~2023-10-12 | XR_ITS ---
XR chest 1V portable DATE: 10/12/2023 13:35 INDICATION: Shortness of breath TECHNIQUE: Portable AP chest on 10/12/2023 1325 hours COMPARISON: 08/26/2023 CT chest 07/27/2023 2 chest FINDINGS: Right-sided Port-A-Cath catheter tip overlies the superior vena cava. Heart size is within normal range. Prominent aortic arch as well as the descending thoracic aortic ca lcification. There is relative volume loss in the left lung compared to the right with mild elevation left hemidia phragm, leftward shift of heart or mediastinum. There is increased density overlying the right mid-upper lung which may be due to neoplasm or scarrin g. No active infiltrate or consolidation is noted. Minimal blunting the costophrenic angles is again not ed, chronic. Osteopenia. DEXA scoliosis and degenerative change of the thoracic spine. IMPRESSION: Little interval change since 07/27/2023 Reviewed, dictated and finalized at location A.
--- NOTE | ~2023-10-12 | CT_ITS ---
EXAMINATION: CTA chest PE protocol DATE: 10/12/2023 15:15 INDICATION: sob TECHNIQUE: Computed tomography angiography (CTA) of the chest was performed with 100 mL Omnipaque-350 intravenous contrast timed to evaluate the pulmonary arteries. Coronal maximum intensity projection 3D-reconstructions were created by the technologist. The dose-length product (DLP) was 185.01 mGy-cm. Automated exposure control and iterative reconstruction technique were employed. COMPARISON: None. FINDINGS: Lung parenchyma and airways: Emphysematous change. Changes of left upper lobectomy. Right upper lobe posterior segment masslike opacity with spiculated margins measuring 4.0 x 4.1 x 1.4 cm, slightly inc reased in size. Pleura: Small left pleural effusion. Thoracic inlet, axillae and chest wall: Unremarkable. Thoracic aorta: No significant dilation. No dissection. Mediastinum: Small hiatal hernia. Heart and pericardium: Mitral calcification. Coronary artery calcifications: Absent. Upper abdomen: No significant finding. Bones: No acute osseous finding. Multiple sclerotic lesions. Chronic superior and inferior endplate d eformities at T11. Pulmonary arteries: Study quality: Adequate. No pulmonary emboli detected. IMPRESSION: No CT evidence of acute pulmonary embolus. Severe emphysema. Increased size of the lung mass in the posterior segment right upper lobe possibly representing disea se progression. Stable osseous metastatic disease. Reviewed, dictated and finalized at location K. IMPRESSION: No CT evidence of acute pulmonary embolus. Severe emphysema. Increased size of the lung mass in the posterior segment right upper lobe possi marbella representing disease progression. Stable osseous metastatic disease.
[2023-10-12 10:57] LABS: Basophils Percent Auto 0.3 % (0.2-1.2); Eosinophils Absolute Auto 0.1 K/mm3 (0-0.3); Eosinophils Percent Auto 1.6 % (0-4.4); Hematocrit 34.4 % (37.0-47.0); Hemoglobin 11.6 g/dL (12.0-15.0); Immature Granulocyte Absolute 0.04 K/mm3 (0.00-0.031); Immature Granulocyte Percent A 0.6 % (0-0.5); Lymphocytes Absolute Auto 0.46 K/mm3 (0.9-3.2); Lymphocytes Percent Auto 7.2 % (18.3-44.2); Mean Corpuscular HGB Conc 33.7 g/dl (32-36); Mean Corpuscular Hemoglobin 31.8 pg (26-34); Mean Corpuscular Volume 94.2 fl (80-100); Mean Platelet Volume 9.7 fl (7.4-10.4); Monocytes Absolute Auto 1.1 K/mm3 (0.1-0.6); Monocytes Percent Auto 16.4 % (2.6-8.5); Neutrophils Absolute Auto 4.7 K/mm3 (1.3-6.7); Neutrophils Percent Auto 73.9 % (45.5-73.1); Platelet Count Result 362 k/mm3 (150-375); Red Blood Count 3.65 M/mm3 (4.2-5.4); White Blood Count 6.4 K/mm3 (4.5-10.0)
[2023-10-12 11:08] LABS: Prothrombin Time 13.3 Seconds (11.1-14.7)
[2023-10-12 11:09] LABS: Alanine Aminotransferase 18 U/L (6-35); Albumin Level 4.1 g/dL (3.5-5.1); Alkaline Phosphatase 73 U/L (38-126); Anion Gap 5 mmol/L (4-12); Aspartate Amino Transferase 27 U/L (14-36); Bilirubin,Total 0.7 mg/dL (0.2-1.3); Blood Urea Nitrogen 13 mg/dL (7-17); Calcium 9.3 mg/dL (8.4-10.2); Carbon Dioxide 26 mmol/L (22-30); Chloride 103 mmol/L (98-107); Estimated CRCL calculation 68 ml/min; Estimated Glomerular Filt Rate > 60; Glucose 107 mg/dL (65-110); Potassium 3.8 mmol/L (3.4-5.0); Sodium 134 mmol/L (137-145)
[2023-10-12 11:21] LABS: Troponin I < 0.012 ng/mL (0.000-0.034)
--- NOTE | 2023-10-12 11:55 | ED.GENADULT ---
HPI - General Adult General Chief complaint: Shortness of Breath/Dyspnea Stated complaint: WEAKNESS & SOB; Hx LUNG CANCER Time Seen by Provider: 10/12/23 10:30 Source: patient Mode of arrival: EMS Limitations: no limitations History of Present Illness HPI narrative: 78-year-old with history of lung CA, hypertension here with a complains of marked weakness, frequent falls. Patient states that she is no longer able to manage take care of herself because of generalized weakness which has been ongoing. She presently denies any headache, chest pain, abdominal pain. No history of nausea or vomiting. However she states that she has been trying to get into [facility] . She states that her elderly sister was 86 is unable to take care of her. She fell 2 days ago at home. No LOC denies neck pain. Onset (ago): week(s) Pain Consistency: constant Associated symptoms: denies other symptoms Treatments prior to arrival: none Related Data Home Medications Medication Instructions Recorded Confirmed aspirin 81 mg tablet 81 mg PO DAILY 05/10/22 09/30/23 calcium carb-ergocalciferol (vit 600 tablet PO DAILY 05/10/22 09/30/23 D2) 600 mg calcium-200 unit tablet omega-3 fatty acids-vitamin E 1,000 cap PO DAILY 05/10/22 09/30/23 1,000 mg capsule vit C 250 mg-vit E 90 mg-zinc 40 1 tablet PO BID 05/10/22 09/30/23 mg-copper 1 wv-hhrcam-orjxqy capsule (PreserVision AREDS-2) pembrolizumab 25 mg/mL intravenous 400 mg IV .q3 weeks 05/17/22 09/30/23 solution (Keytruda) potassium chloride 20 mEq 20 meq PO DAILY 06/11/22 09/30/23 tablet,extended release Allergies Allergy/AdvReac Type Severity Reaction Status Date / Time No Known Allergies Allergy Verified 10/12/23 10:24 Review of Systems Review of Systems: All systems reviewed & are unremarkable except as noted in HPI and below Constitutional: Constitutional: Reports no additional constitutional complaints Eyes: Eyes: Reports no additional eye complaints ENT: Reports system reviewed and no additional complaints, except as documented Cardiovascular: Cardiovascular: Reports no additional cardiovascular complaints Respiratory: Respiratory: Reports no additional respiratory complaints Gastrointestinal: Gastrointestinal: Reports no additional gastrointestinal complaints Musculoskeletal: Musculoskeletal: Reports no additional musculoskeletal complaints PMFSH Past Medical History Medical History Anemia due to chemotherapy Benign essential HTN Emphysema lung HH (hiatus hernia) History of tobacco abuse Lung cancer Left and later R, most recently L agan. Malignant melanoma of right thigh Surgical History Surgical History History of appendectomy History of melanoma excision S/P partial lobectomy of lung Family History Family History Other Diabetes mellitus Hypertension Social History Social History Social History: Single Smoking packs per day: 0.5 Smoking cigarettes per day: 10.0 Years smoked: 30 Smoking pack-years: 15.00 Smoking status: Former smoker Tobacco type: cigarettes Second hand tobacco smoke exposure: No Smoking end date: 03/12/11 Alcohol intake: never Substance use: never Substance use type: does not use Do You Feel Safe in your Home?: Yes Lack of Transportation: No Lack of Food: Never True Current Housing: I Have Housing Concerned About Future Housing: No Difficulty Paying Gas/Electric Bills: No Difficulty Paying for Meds: No Currently Unemployed: YES Education: Don't Know Difficulty w/ Childcare or Family Care: No Living arrangements: with family Additional living arrangements comments: Pt lives with her sister. Occupation/Education: retired Gender identity (if verbalized by the patient
--- NOTE | 2023-10-12 12:14 | PC.NURSE ---
therapy here to assess patient
--- NOTE | 2023-10-12 12:43 | PC.NURSE ---
O2 sat decreased with minimal physical exertion during therapy assessment. O2 at 3L/NC was placed for ambulation to restroom. patient returned to bed and was able to recover well. O2 removed per patient request
[2023-10-12 12:51] LABS: Appearance Urine Clear (Clear); Bilirubin Urine Negative (Negative); Blood Urine Negative (Negative); Color Urine Yellow (Yellow); Glucose Urine UA Negative (Negative); Ketones Urine Negative (Negative); Leukocyte Esterase Ur Negative LEU/UL (Negative); Nitrate Urine Negative (Negative); Protein Urine Negative (Negative); Specific Grav Ur 1.012 (1.001-1.035); pH Urine 6.5 (5.0-9.0)
[2023-10-12 13:00] LABS: Add Urine Microscopic? NO
--- NOTE | 2023-10-12 15:25 | PCCCNOTE ---
1100: CC called to talk to pt and her family about placing her in rehab. She has had falls at home and is feeling weak. Pt lives with her sister, who is 86yo, and is having a hard time taking care of her. Pt was given options on placement, and choose [facility] as her first choice. Melina at [facility] notified and will look at her case. 1150: [facility] requesting therapy evaluations, PT/OT ordered. 1310: Pt requiring oxygen with walking. 1315: [facility] requests a CXR, and 1435: Dr. Oconnell from [facility] spoke with Dr. Padilla and request a CTA Chest.
--- NOTE | 2023-10-12 15:29 | PC.NURSE ---
patient speaking with florin at [facility] at this time
--- NOTE | 2023-10-12 16:12 | PCCCNOTE ---
1548: CTA results called to Melina at [facility], awaiting return call to confirm pt acceptance.
--- NOTE | 2023-10-12 16:58 | PCCCNOTE ---
Melina with [facility] called back to accept pt. Sandra BUCK taking care of the pt given the phone numbers to call report and fax the final orders. Family aware of this, given a pamphlet to [facility] for future needs per the families request.
== END 2023-10-12 18:09 ==
PROVIDERS: Emergency Provider Family Medicine; PCP Family Medicine
DX: R53.1 Weakness (principal); J44.9 Chronic obstructive pulmonary disease, unspecified; R53.81 Other malaise; S00.83XA Contusion of other part of head, initial encounter; R29.6 Repeated falls; I10 Essential (primary) hypertension; J43.9 Emphysema, unspecified; Z85.118 Personal history of other malignant neoplasm of bronchus and lung; Z85.820 Personal history of malignant melanoma of skin; Z87.891 Personal history of nicotine dependence; Z90.2 Acquired absence of lung [part of]; Z79.82 Long term (current) use of aspirin; C79.51 Secondary malignant neoplasm of bone; W19.XXXA Unspecified fall, initial encounter
CPT/HCPCS: 36415; 70450; 71045; 71275; 80053; 81003; 84484; 85025; 85610; 97161; 97165; 99284; Q9967

== ENCOUNTER 2023-12-13 18:57 | Inpatient (IN) | payer MEDICARE, OTHER, SELFPAY ==
--- NOTE | ~2023-12-13 | CT_ITS ---
EXAMINATION: CT abdomen pelvis w con DATE: 12/13/2023 22:02 INDICATION: Constipation. TECHNIQUE: Computed tomography (CT) of the abdomen and pelvis was performed with 100 mL Omnipaque 350 intravenous contrast. Automated exposure control and iterative reconstruction technique were employe d. The dose-length product was 201.86 mGy-cm. COMPARISON: CT abdomen and pelvis 08/06/2022 FINDINGS: The visualized portions of the lung bases demonstrate emphysema and mild atelectasis. There are centrilobular nodules in right middle lobe, likely infection. There is a small left pleural effu ronna. There is mild bronchiectasis in right middle lobe. The heart size is normal. No pericardial eff usion. There is a small sliding hiatal hernia. The liver, gallbladder, spleen, pancreas, and adrenal glands are normal. There are cysts in the kidneys measuring up to 10 mm on the left. Stool distends t he rectum. There is fat stranding around the rectum , consistent with stercoral colitis. The appendix is not visualized. There is calcified atherosclerosis of the aorta and many of the other arteries. T here are no pathologically enlarged lymph nodes. There is no free intraperitoneal fluid. There are nu merous scattered sclerotic lesions of bone, consistent with metastatic disease. IMPRESSION: 1. Stercoral colitis. 2. Centrilobular nodules in right middle lobe, likely mild infection. 3. Small left pleural effusion. 4. Sclerotic lesions of bone, stable from 08/06/2022, consistent with metastatic disease. Reviewed, dictated and finalized at location E.
[2023-12-13 19:15] VITALS: BP 134/76; PULSE 120; RESP 20; TEMP 36.7; O2SAT 99
--- NOTE | 2023-12-13 19:24 | ECG_ITS ---
Test Date: 2023-12-13 19:31:16 Measurements Intervals Clay Rate: 116 P: 97 DC: 152 QRS: 85 QRSD: 73 T: 91 QT: 341 QTc: 475 Interpretive Statements SINUS TACHYCARDIA POSSIBLE LEFT ATRIAL ENLARGEMENT CANNOT R/O SEPTAL INFARCT, AGE INDETERMINATE BASELINE ARTIFACT- I, II, III, AVR, AVL, AVF ABNORMAL ECG No previous ECG available for comparison Electronically Signed On 12-13-2023 19:32:40 CDT by Bal Mccullough D.O.
[2023-12-13 20:43] VITALS: PULSE 101; O2SAT 100
--- NOTE | 2023-12-13 20:45 | PC.NURSE ---
pt family member states she administered fleet enema for patient today along with glycerin suppository and both were unable to help patient have bowel movement. pt states she is feeling lethargic and weak after attempting to go the bathroom all day.
[2023-12-13 20:46] VITALS: BP 119/82; PULSE 98; RESP 24; O2SAT 98
[2023-12-13 21:01] VITALS: BP 131/74; PULSE 94; RESP 18; O2SAT 98
--- NOTE | 2023-12-13 21:07 | ED.WEAKNESS ---
HPI - Weakness General Chief complaint: Weakness Stated complaint: constipated x5d, weakness, nausea Time Seen by Provider: 12/13/23 20:08 History of Present Illness HPI Narrative: Patient is an 78-year-old female with a history of metastatic lung cancer presenting with generalized weakness and constipation. Patient's daughter is at bedside and helps with the history. Patient has been unable to have a full bowel movement for at least 5 days. She does have a history of constipation but they usually resolves with enemas. States that she has used to enemas and a suppository and has only had a very small bowel movement. She denies abdominal pain or vomiting. States that she has chronic mild nausea and decreased appetite. She lives at independent living and today was too weak to even be helped into a wheelchair so EMS was called. She continues to feel extremely weak. She denies chest pain, shortness breath, cough, fevers, dysuria, hematuria, leg swelling. States that she has had a decrease in urinary frequency for the last several weeks. Related Data Home Medications Medication Instructions Recorded Confirmed aspirin 81 mg tablet 81 mg PO DAILY 05/10/22 12/14/23 calcium carb-ergocalciferol (vit 600 tablet PO DAILY 05/10/22 12/14/23 D2) 600 mg calcium-200 unit tablet omega-3 fatty acids-vitamin E 1,000 cap PO DAILY 05/10/22 12/14/23 1,000 mg capsule vit C 250 mg-vit E 90 mg-zinc 40 1 tablet PO BID 05/10/22 12/14/23 mg-copper 1 [id number]-ohdzuf-lfoozm capsule (PreserVision AREDS-2) atorvastatin 10 mg tablet 10 mg PO 3XW 10/12/23 12/14/23 folic acid 1 mg tablet 1 mg PO DAILY 12/14/23 12/14/23 metoprolol succinate 25 mg 25 mg PO BID 12/14/23 12/14/23 tablet,extended release 24 hr Allergies Allergy/AdvReac Type Severity Reaction Status Date / Time No Known Allergies Allergy Verified 12/13/23 19:23 Review of Systems Review of Systems: All systems reviewed & are unremarkable except as noted in HPI and below PMFSH Past Medical History Medical History Anemia due to chemotherapy Benign essential HTN Emphysema lung HH (hiatus hernia) History of tobacco abuse Lung cancer Left and later R, most recently L agan. Malignant melanoma of right thigh Surgical History Surgical History History of appendectomy History of melanoma excision S/P partial lobectomy of lung Family History Family History Other Diabetes mellitus Hypertension Unknown family medical history Social History Social History Social History: Single Smoking packs per day: 0.5 Smoking cigarettes per day: 10.0 Years smoked: 30 Smoking pack-years: 15.00 Smoking status: Former smoker Tobacco type: cigarettes Second hand tobacco smoke exposure: No Smoking end date: 03/12/11 Alcohol intake: never Substance use: never Substance use type: does not use Do You Feel Safe in your Home?: Yes Lack of Transportation: No Lack of Food: Never True Current Housing: I Have Housing Concerned About Future Housing: No Difficulty Paying Gas/Electric Bills: No Difficulty Paying for Meds: No Currently Unemployed: No Education: Associate Degree Difficulty w/ Childcare or Family Care: No Living arrangements: assisted living Occupation/Education: retired Gender identity (if verbalized by the patient): Female Sexual Orientation (if Verbalized by the Patient): Straight or Heterosexual Spiritual care concerns: No Exam Narrative: GENERAL: chronically ill-appearing, no acute distress, pleasant cooperative HEAD: Normocephalic, atraumatic. EYES: PERRLA and EOMI. ENT: Mucous membranes moist. NECK: Supple. CHEST: Clear to auscultation. No respiratory distress. HEART: tachycardi
[2023-12-13] MEDS: SODIUM CHLORIDE 0.9% IV 1,000 ML 999 ML IV CONT (21:21)
[2023-12-13 21:28] LABS: Basophils Percent Auto 0.4 % (0.2-1.2); Eosinophils Percent Auto 0.3 % (0-4.4); Hematocrit 36.1 % (37.0-47.0); Hemoglobin 12.6 g/dL (12.0-15.0); Immature Granulocyte Absolute 0.04 K/mm3 (0.00-0.031); Immature Granulocyte Percent A 0.4 % (0-0.5); Lymphocytes Absolute Auto 0.64 K/mm3 (0.9-3.2); Lymphocytes Percent Auto 5.9 % (18.3-44.2); Mean Corpuscular HGB Conc 34.9 g/dl (32-36); Mean Corpuscular Hemoglobin 31.1 pg (26-34); Mean Corpuscular Volume 89.1 fl (80-100); Mean Platelet Volume 9.5 fl (7.4-10.4); Monocytes Percent Auto 9.4 % (2.6-8.5); Neutrophils Percent Auto 83.6 % (45.5-73.1); Platelet Count Result 273 k/mm3 (150-375); Red Blood Count 4.05 M/mm3 (4.2-5.4); Red Cell Distribution Width 15.2 % (11.5-14.5); White Blood Count 10.8 K/mm3 (4.5-10.0)
[2023-12-13 21:37] LABS: Lactic Acid Reflex 0.8 mmol/L (0.7-2.0)
[2023-12-13 21:38] LABS: Alanine Aminotransferase 13 U/L (6-35); Albumin Level 3.9 g/dL (3.5-5.1); Alkaline Phosphatase 75 U/L (38-126); Anion Gap 8 mmol/L (4-12); Aspartate Amino Transferase 27 U/L (14-36); Bilirubin,Total 1.3 mg/dL (0.2-1.3); Blood Urea Nitrogen 20 mg/dL (7-17); Calcium 8.9 mg/dL (8.4-10.2); Carbon Dioxide 27 mmol/L (22-30); Chloride 98 mmol/L (98-107); Estimated CRCL calculation 67 ml/min; Estimated Glomerular Filt Rate > 60; Glucose 99 mg/dL (65-110); Lipase 120 U/L (23-300); Potassium 3.7 mmol/L (3.4-5.0); Sodium 133 mmol/L (137-145)
--- NOTE | 2023-12-13 22:50 | PM.IMHP ---
H&P: HPI History of Present Illness Date/Time: 12/13/23 22:50 Chief Complaint: constipation. Narrative: This is an 78-year-old female with past medical history significant for metastatic lung CA, undergoing chemotherapy, now on hold due to generalized weakness. Patient was brought to the emergency room due to constipation for a week or so and poor per orally intake. Preliminary workup significant for stercoral colitis. EXAMINATION: CT abdomen pelvis w con DATE: 12/13/2023 22:02 INDICATION: Constipation. TECHNIQUE: Computed tomography (CT) of the abdomen and pelvis was performed with 100 mL Omnipaque 350 intravenous contrast. Automated exposure control and iterative reconstruction technique were employed. The dose-length product was 201.86 mGy-cm. COMPARISON: CT abdomen and pelvis 08/06/2022 FINDINGS: The visualized portions of the lung bases demonstrate emphysema and mild atelectasis. There are centrilobular nodules in right middle lobe, likely infection. There is a small left pleural effusion. There is mild bronchiectasis in right middle lobe. The heart size is normal. No pericardial effusion. There is a small sliding hiatal hernia. The liver, gallbladder, spleen, pancreas, and adrenal glands are normal. There are cysts in the kidneys measuring up to 10 mm on the left. Stool distends the rectum. There is fat stranding around the rectum , consistent with stercoral colitis. The appendix is not visualized. There is calcified atherosclerosis of the aorta and many of the other arteries. There are no pathologically enlarged lymph nodes. There is no free intraperitoneal fluid. There are numerous scattered sclerotic lesions of bone, consistent with metastatic disease. IMPRESSION: 1. Stercoral colitis. 2. Centrilobular nodules in right middle lobe, likely mild infection. 3. Small left pleural effusion. 4. Sclerotic lesions of bone, stable from 08/06/2022, consistent with metastatic disease. Review of Systems Review of Systems: constipation, poor per oral intake Constitutional: Constitutional: Reports fatigue, Reports lethargy, Reports poor appetite and Reports weakness Eyes: Eyes: Denies change in vision ENT: Denies dysphagia and Denies odynophagia Cardiovascular: Cardiovascular: Denies chest pain Respiratory: Respiratory: Denies cough and Denies excessive phlegm production Gastrointestinal: Gastrointestinal: Reports abdominal pain, Reports constipation and Reports nausea Genitourinary: Genitourinary: Denies dysuria Musculoskeletal: Musculoskeletal: Reports muscle weakness Integumentary/Breasts: Skin/Breast: Denies rash Neurologic: Denies focal weakness and Denies Sensory deficit (Neuro) Psychiatric: Psychiatric: Reports no additional psychiatric complaints and Reports as per HPI Endocrine: Endocrine: Denies cold intolerance, Denies heat intolerance, Denies polyphagia, Denies polydipsia and Denies polyuria Hematologic/Lymphatic: Hematologic/Lymphatic: Reports no additional hematologic/lymphatic complaints and Reports as per HPI Allergic/Immunologic: Allergic/Immunologic: Reports no additional allergic/immunologic complaints and Reports as per HPI PMFSH Past Medical History Medical History Anemia due to chemotherapy Benign essential HTN Emphysema lung HH (hiatus hernia) History of tobacco abuse Lung cancer Left and later R, most recently L agan. Malignant melanoma of right thigh Surgical History Surgical History History of appendectomy History of melanoma excision S/P partial lobectomy of lung Family History Family History Other Diabetes mellitus Hypertension Unknown family medical history Social History Social History Social History: Single Smoking packs per day
[2023-12-14] VITALS (8 sets, daily range): BP systolic 119–137; BP diastolic 57–60; PULSE 75–85; RESP 18–26; TEMP 36.2–37.4; O2SAT 96–100; BMI 19.1
--- NOTE | 2023-12-14 00:08 | ADMGEN ---
This patient, Elzbieta Coy, was admitted to 2 Medical Room 254-01. Patient/family oriented to hospital policies and general routines including ID bracelet, bed and alarms, visiting hours, pain management, procedures, bathroom and other care routines, personal items, smoking policy, room service/diet, and visiting hours. Information on how to activate the Rapid Response Team has been discussed. Patient/Family are encouraged to report perceived risks to care and to ask questions if they do not understand what they are told or what they should do.
[2023-12-14] MEDS: GLYCERIN ADULT 1 SUPP.RECT RECTAL (03:11)
[2023-12-14] MEDS: polyethylene glycoL 3350 238 GM BOTTLE PO (04:04)
[2023-12-14] MEDS: CALCIUM/VITAMIN D 500 MG/5 MCG (200 I.U.) TABLET PO (09:35)
[2023-12-14] MEDS: FOLIC ACID 1 MG TABLET PO (09:35)
[2023-12-14] MEDS: ASPIRIN 81 MG ENTERIC TABLET PO (09:35)
[2023-12-14] MEDS: PANTOPRAZOLE 40 MG TABLET PO (09:35)
[2023-12-14] MEDS: OMEGA 3 POLYUNSAT FATTY ACIDS 1 GM CAP PO (09:35)
[2023-12-14] MEDS: OPTI-GEN TAB 1 TABLET PO ×2 (09:35→17:09)
[2023-12-14] MEDS: METOPROLOL TARTRATE 25 MG TABLET PO ×2 (09:36→20:38)
--- NOTE | 2023-12-14 09:46 | PM.IMPN ---
Progress Note: A&P Assessment and Plan (1) Dehydration: Code(s): E86.0 - Dehydration Status: Acute Assessment and Plan: -continue to monitor hydration status -S/p: 1 L NS given in the ED -monitor I&O -LR IV 75 ML/Hr x1 -recheck BMP in the a.m. (2) Stercoral colitis: Code(s): K52.89 - Other specified noninfective gastroenteritis and colitis Status: Acute Assessment and Plan: -start aggressive bowel regimen -Dulcolax, MiraLax,docusate, enema -monitor/record bowel movements -may need repeat Abdomen xray in the A.M. 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 Murillo (6) Centrilobular emphysema: Code(s): J43.2 - Centrilobular emphysema Status: Acute Assessment and Plan: Centrilobular nodules in right middle lobe, likely mild infection. -not on oxygen -wbc is 10.8 -blood cultures pending -repeat CBC in the a.m. 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 Poor historian during admission, history was provided by the daughter at bedside. Pt Currently living alone at an independent living center. 12/14/2023: 0946 Patient seen this morning she is being assisted from the restroom using a skyler-steady, she denies any sob, chest pain, n/v, fever or chills at this time.She is a/o3 provides HPI. Review of Systems Review of Systems: constipation, poor per oral intake Exam Narrative: General: A ill appearing, female returning from the bathroom with assistance in no acute distress HEENT: PERRL, EOMI. dry Oral mucosa Neck: Supple. No midline cervical tenderness. Respiratory: Respirations are non- labored and lungs are clear to auscultation bilaterally. Cardiovascular: Regular rate and rhythm with S1-S2. Gastrointestinal: Abdomen is soft, non-tender, and non-distended with positive bowel sounds. Skin: right upper chest power port Extremities: No cyanosis, clubbing, or edema. Radial and pedal pulses intact. Neurological: Alert and oriented. Cranial nerves 2-12 are grossly intact. No gross focal deficits to casual conversation. Psychiatric: Pleasant and cooperative with normal mood and affect. Judgment and insight intact. Objective Data Vital Signs Vital Signs: Vital Signs - 24 hr 12/13/23 19:15 12/13/23 20:43 12/13/23 20:43 Temperature 98.0 F Pulse Rate 120 H 101 H Respiratory Rate 20 Blood Pressure 134/76 Pulse Oximetry 99 100 Oxygen Delivery Room Air Room Air 12/13/23 20:46 12/13/23 21:01 12/14/23 00:15 Temperature Pulse Rate 98 94 Respiratory Rate 24 H 18 Blood Pressure 119/82 131/74 Pulse Oximetry 98 98 98 Oxygen Delivery Room Air 12/14/23 00:55 12/14/23 06:00 12/14/23 08:38 Temperature 97.5 F L 97.1 F L Pulse Ra
[2023-12-14] MEDS: LACTATED RINGERS 1,000 ML 75 ML IV CONT (15:05)
[2023-12-15] VITALS (7 sets, daily range): BP systolic 116–153; BP diastolic 41–64; PULSE 62–99; RESP 18–20; TEMP 36.5–36.7; O2SAT 99–100
[2023-12-15 07:16] LABS: Anion Gap 5 mmol/L (4-12); Blood Urea Nitrogen 6 mg/dL (7-17); Calcium 8.2 mg/dL (8.4-10.2); Carbon Dioxide 26 mmol/L (22-30); Chloride 104 mmol/L (98-107); Estimated CRCL calculation 77 ml/min; Estimated Glomerular Filt Rate > 60; Glucose 86 mg/dL (65-110); Potassium 3.5 mmol/L (3.4-5.0); Sodium 135 mmol/L (137-145)
[2023-12-15 07:17] LABS: Basophils Percent Auto 0.8 % (0.2-1.2); Eosinophils Absolute Auto 0.1 K/mm3 (0-0.3); Eosinophils Percent Auto 1.6 % (0-4.4); Hematocrit 32.5 % (37.0-47.0); Hemoglobin 11.4 g/dL (12.0-15.0); Immature Granulocyte Absolute 0.02 K/mm3 (0.00-0.031); Immature Granulocyte Percent A 0.4 % (0-0.5); Lymphocytes Absolute Auto 0.43 K/mm3 (0.9-3.2); Lymphocytes Percent Auto 8.7 % (18.3-44.2); Mean Corpuscular HGB Conc 35.1 g/dl (32-36); Mean Corpuscular Hemoglobin 31.8 pg (26-34); Mean Corpuscular Volume 90.5 fl (80-100); Mean Platelet Volume 9.9 fl (7.4-10.4); Monocytes Absolute Auto 0.5 K/mm3 (0.1-0.6); Monocytes Percent Auto 9.1 % (2.6-8.5); Neutrophils Absolute Auto 3.9 K/mm3 (1.3-6.7); Neutrophils Percent Auto 79.4 % (45.5-73.1); Platelet Count Result 227 k/mm3 (150-375); Red Blood Count 3.59 M/mm3 (4.2-5.4); Red Cell Distribution Width 15.2 % (11.5-14.5); White Blood Count 4.9 K/mm3 (4.5-10.0)
[2023-12-15] MEDS: ENOXAPARIN 40 MG/0.4 ML SYRINGE SUB-Q (09:02)
[2023-12-15] MEDS: CALCIUM/VITAMIN D 500 MG/5 MCG (200 I.U.) TABLET PO (09:02)
[2023-12-15] MEDS: ASPIRIN 81 MG ENTERIC TABLET PO (09:02)
[2023-12-15] MEDS: PANTOPRAZOLE 40 MG TABLET PO (09:03)
[2023-12-15] MEDS: METOPROLOL TARTRATE 25 MG TABLET PO ×2 (09:03→20:16)
[2023-12-15] MEDS: OPTI-GEN TAB 1 TABLET PO ×2 (09:03→16:38)
[2023-12-15] MEDS: OMEGA 3 POLYUNSAT FATTY ACIDS 1 GM CAP PO (09:03)
[2023-12-15] MEDS: FOLIC ACID 1 MG TABLET PO (09:03)
--- NOTE | 2023-12-15 13:35 | PM.IMPN ---
Progress Note: A&P Assessment and Plan (1) Dehydration: Code(s): E86.0 - Dehydration Status: Acute Assessment and Plan: -continue to monitor hydration status -S/p: 1 L NS given in the ED -monitor I&O -LR IV 75 ML/Hr x1 -recheck BMP in the a.m. (2) Stercoral colitis: Code(s): K52.89 - Other specified noninfective gastroenteritis and colitis Status: Acute Assessment and Plan: Started aggressive bowel regimen, having solid BM's and feeling ok. No nausea -Dulcolax, MiraLax,docusate, enema, continue at discharge --Follow up with PCP (3) Constipation: Code(s): K59.00 - Constipation, unspecified Status: Acute Assessment and Plan: Acute on chronic (4) Bone metastases: Code(s): C79.51 - Secondary malignant neoplasm of bone Status: Acute (5) Lung cancer: Qualifiers: Laterality: right Lung location: upper lobe of lung Qualified Code(s): C34.11 - Malignant neoplasm of upper lobe, right bronchus or lung Code(s): C34.90 - Malignant neoplasm of unspecified part of unspecified bronchus or lung Status: Acute Assessment and Plan: -patient history of 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 Murillo (6) Centrilobular emphysema: Code(s): J43.2 - Centrilobular emphysema Status: Acute Assessment and Plan: Centrilobular nodules in right middle lobe, likely mild infection. 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 Had a formed BM overnight and loose stools today. Wants to go home. WBC 10.8, improved to 4.9 overnight. Review of Systems Review of Systems: constipation, poor per oral intake Exam Narrative: General: A ill appearing, female returning from the bathroom with assistance in no acute distress HEENT: PERRL, EOMI. dry Oral mucosa Neck: Supple. No midline cervical tenderness. Respiratory: Respirations are non- labored and lungs are clear to auscultation bilaterally. Cardiovascular: Regular rate and rhythm with S1-S2. Gastrointestinal: Abdomen is soft, non-tender, and non-distended with positive bowel sounds. Skin: right upper chest power port Extremities: No cyanosis, clubbing, or edema. Radial and pedal pulses intact. Neurological: Alert and oriented. Cranial nerves 2-12 are grossly intact. No gross focal deficits to casual conversation. Psychiatric: Pleasant and cooperative with normal mood and affect. Judgment and insight intact. Objective Data Vital Signs Vital Signs: Vital Signs - 24 hr 12/14/23 14:00 12/14/23 20:00 12/14/23 22:00 Temperature 98.2 F 99.4 F Pulse Rate 75 78 84 Respiratory Rate 26 H 19 18 Blood Pressure 137/57 L 136/57 L Pulse Oximetry 100 99 98 Oxygen Delivery Room Air Fraction of Inspired Oxygen 12/15/23 06:00 12/15/23 08:50 12/15/23 09:03 Temperature 98.0 F Pulse Rate 66 99 97 Respiratory Rate 18 20 Blood Pressure 143/52 H Pulse Oximetry 100 100 Oxygen Delivery Room Air Fraction of Inspired Oxygen 21 12/15/23 09:00 Temperature Pulse Rate Respiratory Rate Blood Pressure Pulse Oximetry Oxygen Delivery Room Air Fraction of Inspired Oxygen Intake/Output Intake/Output: Intake & Output 12/12/23 12/13/23 12/14/23 12/15/23 23:59 23:59 23:59 23:59 Intake Total 1000 1760 480 Output Total 400 1 Balance 1000 136
--- NOTE | 2023-12-15 14:18 | PC.NURSE ---
Patient and family notified of discharge orders. They do not feel it is safe for patient to be discharged to independent living and would like to consider other options. Hospitalist notified and agrees okay to postpone discharge. Care coordination notified of placement needs, but stated that patient can't receive chemo at a intermediate/rehab facility as medicare will not pay for both. Care coordination to discuss with patient's daughter and determine a plan moving forward.
[2023-12-15] MEDS: POTASSIUM CHLORIDE 20 MEQ PACKET (FOR LIQUID) 40 MEQ PO (14:27)
[2023-12-15] MEDS: GABAPENTIN 100 MG CAPSULE 200 MG PO (20:16)
[2023-12-16 05:18] VITALS: BP 137/58; PULSE 65; RESP 17; TEMP 36.7; O2SAT 98
[2023-12-16 05:23] LABS: Basophils Absolute Auto 0.1 K/mm3 (0.0-0.1); Basophils Percent Auto 1.2 % (0.2-1.2); Eosinophils Absolute Auto 0.2 K/mm3 (0-0.3); Eosinophils Percent Auto 3.1 % (0-4.4); Hematocrit 31.8 % (37.0-47.0); Hemoglobin 11.3 g/dL (12.0-15.0); Immature Granulocyte Absolute 0.03 K/mm3 (0.00-0.031); Immature Granulocyte Percent A 0.6 % (0-0.5); Lymphocytes Absolute Auto 0.66 K/mm3 (0.9-3.2); Lymphocytes Percent Auto 13.6 % (18.3-44.2); Mean Corpuscular HGB Conc 35.5 g/dl (32-36); Mean Corpuscular Hemoglobin 32.1 pg (26-34); Mean Corpuscular Volume 90.3 fl (80-100); Mean Platelet Volume 9.6 fl (7.4-10.4); Monocytes Absolute Auto 0.5 K/mm3 (0.1-0.6); Monocytes Percent Auto 10.7 % (2.6-8.5); Neutrophils Absolute Auto 3.4 K/mm3 (1.3-6.7); Neutrophils Percent Auto 70.8 % (45.5-73.1); Platelet Count Result 240 k/mm3 (150-375); Red Blood Count 3.52 M/mm3 (4.2-5.4); Red Cell Distribution Width 15.6 % (11.5-14.5); White Blood Count 4.9 K/mm3 (4.5-10.0)
[2023-12-16 05:33] LABS: Anion Gap 5 mmol/L (4-12); Blood Urea Nitrogen 7 mg/dL (7-17); Calcium 8.8 mg/dL (8.4-10.2); Carbon Dioxide 27 mmol/L (22-30); Chloride 102 mmol/L (98-107); Estimated CRCL calculation 64 ml/min; Estimated Glomerular Filt Rate > 60; Glucose 84 mg/dL (65-110); Potassium 4.2 mmol/L (3.4-5.0); Sodium 134 mmol/L (137-145)
[2023-12-16 07:02] LABS: Folic Acid 15.7 ng/mL (2.76->20); Vitamin B12 > 1000.0 pg/mL (239-931)
--- NOTE | 2023-12-16 08:02 | PM.IMPN ---
Progress Note: A&P Assessment and Plan (1) Dehydration: Code(s): E86.0 - Dehydration Status: Acute Assessment and Plan: monitor I&O d/c fluids BMP stable (2) Stercoral colitis: Code(s): K52.89 - Other specified noninfective gastroenteritis and colitis Status: Acute Assessment and Plan: Started aggressive bowel regimen BM ?? -Dulcolax, MiraLax,docusate, enema, continue at discharge -Follow up with PCP (3) Constipation: Code(s): K59.00 - Constipation, unspecified Status: Acute Assessment and Plan: continue bowel regimen (4) Emphysema lung: Qualifiers: Emphysema type: unspecified Qualified Code(s): J43.9 - Emphysema, unspecified Code(s): J43.9 - Emphysema, unspecified Status: Chronic Assessment and Plan: Centrilobular nodules in right middle lobe, likely mild infection. 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 Murillo (6) Lung cancer: Qualifiers: Laterality: right Lung location: upper lobe of lung Qualified Code(s): C34.11 - Malignant neoplasm of upper lobe, right bronchus or lung Code(s): C34.90 - Malignant neoplasm of unspecified part of unspecified bronchus or lung Status: Chronic Assessment and Plan: see above Subjective Date/time seen: 12/16/23 08:02 Exam Narrative: General: A ill appearing, female returning from the bathroom with assistance in no acute distress HEENT: PERRL, EOMI. dry Oral mucosa Neck: Supple. No midline cervical tenderness. Respiratory: Respirations are non- labored and lungs are clear to auscultation bilaterally. Cardiovascular: Regular rate and rhythm with S1-S2. Gastrointestinal: Abdomen is soft, non-tender, and non-distended with positive bowel sounds. Skin: right upper chest power port Extremities: No cyanosis, clubbing, or edema. Radial and pedal pulses intact. Neurological: Alert and oriented. Cranial nerves 2-12 are grossly intact. No gross focal deficits to casual conversation. Psychiatric: Pleasant and cooperative with normal mood and affect. Judgment and insight intact. Objective Data Vital Signs Vital Signs: Vital Signs - 24 hr 12/15/23 08:50 12/15/23 09:03 12/15/23 09:00 Temperature Pulse Rate 99 97 Respiratory Rate 20 Blood Pressure Pulse Oximetry 100 Oxygen Delivery Room Air Room Air Fraction of Inspired Oxygen 21 12/15/23 14:00 12/15/23 20:41 12/15/23 22:21 Temperature 98.0 F 97.7 F Pulse Rate 62 65 Respiratory Rate 20 18 Blood Pressure 125/57 L 116/41 L 153/64 H Pulse Oximetry 100 99 Oxygen Delivery Fraction of Inspired Oxygen 12/15/23 20:00 12/16/23 05:18 Temperature 98.0 F Pulse Rate 65 65 Respiratory Rate 18 17 Blood Pressure 137/58 L Pulse Oximetry 99 98 Oxygen Delivery Room Air Fraction of Inspired Oxygen 21 Intake/Output Intake/Output: Intake & Output 12/13/23 12/14/23 12/15/23 12/16/23 23:59 23:59 23:59 23:59 Intake Total 1000 1760 960 100 Output Total 400 501 600 Balance 1000 1360 459 -500 Meds/Results Medications: Active Medications Generic Name Dose Route Start Last Admin Trade Name Freq PRN Reason Stop Dose Admin Aspirin 81 mg 12/14/23 09:00 12/15/23 09:02 Aspirin 81 Mg Enteric Tablet PO 81 mg QAM [facility] Administration Atorvastatin Calcium 10 mg 12/16/23 09:00 Atorvastatin 10 Mg Tablet PO [id number] [facility] Bisacodyl 5 mg 12/14/23 02:38 Bisacodyl 5 Mg Tablet Ec PO DAILY PRN Constipation - 2nd Line Calcium Carbonate 500 mg 12/14/23 09:00 12/15/23 09:02 Calcium/Vitamin D 500 Mg/5 Mcg (20
[2023-12-16] MEDS: OPTI-GEN TAB 1 TABLET PO (09:24)
[2023-12-16] MEDS: ENOXAPARIN 40 MG/0.4 ML SYRINGE SUB-Q (09:24)
[2023-12-16] MEDS: ASPIRIN 81 MG ENTERIC TABLET PO (09:24)
[2023-12-16] MEDS: CALCIUM/VITAMIN D 500 MG/5 MCG (200 I.U.) TABLET PO (09:24)
[2023-12-16] MEDS: PANTOPRAZOLE 40 MG TABLET PO (09:24)
[2023-12-16] MEDS: OMEGA 3 POLYUNSAT FATTY ACIDS 1 GM CAP PO (09:24)
[2023-12-16] MEDS: FOLIC ACID 1 MG TABLET PO (09:24)
--- NOTE | 2023-12-16 09:25 | PM.DS ---
DS: Admitting Diagnosis Discharge Date 12/16/23 Admitting Diagnosis constipation DS: Discharge Diagnosis Discharge Diagnosis (1) Pleural effusion: Code(s): J90 - Pleural effusion, not elsewhere classified Status: Acute Assessment and Plan: not requiring oxygen (2) Centrilobular emphysema: Code(s): J43.2 - Centrilobular emphysema Status: Acute Assessment and Plan: centrilobular nodules in right middle lobe, likely mild infection. -not on oxygen -blood cultures pending 12/13--NGTD WBC WNL (3) Dehydration: Code(s): E86.0 - Dehydration Status: Acute Assessment and Plan: s/p fluids, increasing PO intake BMP stable, mild hypokalemia, replete with PO (4) Stercoral colitis: Code(s): K52.89 - Other specified noninfective gastroenteritis and colitis Status: Acute Assessment and Plan: Started aggressive bowel regimen BM started yesterday -Dulcolax, MiraLax,docusate continue at discharge --Follow up with PCP (5) Constipation: Code(s): K59.00 - Constipation, unspecified Status: Acute Assessment and Plan: see above (6) Bone metastases: Code(s): C79.51 - Secondary malignant neoplasm of bone Status: Chronic (7) Lung cancer: Qualifiers: Laterality: right Lung location: upper lobe of lung Qualified Code(s): C34.11 - Malignant neoplasm of upper lobe, right bronchus or lung Code(s): C34.90 - Malignant neoplasm of unspecified part of unspecified bronchus or lung Status: Chronic Assessment and Plan: patient history of 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 Murillo DS: Summary Hospital Course Hospital Course: Patient is an 78-year-old female with a history of metastatic lung cancer admitted for generalized weakness and constipation. Pt Currently living alone at an independent living center and has decided to go back at d/c so that she may continue chemotherapy. Care coordination has been following. Patient denies pain, SOB or abdominal discomfort this morning. She is now on bowel regimen with BM starting yesterday. To be continued at d/c. Will get PO potassium prior to d/c today, but she is now eating and drinking. Status at Discharge Functional status at discharge: uses cane/walker Overall status at discharge: patient is progressing back to baseline Time Spent with Patient Time attestation: Total time spent providing and/or coordinating discharge services: Exam Narrative: General: ill appearing, elderly female in no acute distress HEENT: PERRPERCY, EOMI. Neck: Supple. Respiratory: lungs are clear to auscultation bilaterally. Cardiovascular: RRR with S1-S2. Gastrointestinal: Abdomen is soft, non-tender, and non-distended with positive bowel sounds. Skin: right upper chest power port Extremities: No cyanosis, clubbing, or edema. Radial and pedal pulses intact. Neurological: A&O x3. Cranial nerves 2-12 are grossly intact. No gross focal deficits to casual conversation. Psychiatric: Pleasant and cooperative with normal mood and affect. Judgment and insight intact. DS: Data Data Completed and Pending Labs on day of discharge: Labs from last 24 hours 12/16/23 05:08 WBC 4.9 RBC 3.52 L Hgb 11.3 L Hct 31.8 L MCV 90.3 MCH 32.1 MCHC 35.5 RDW 15.6 H Plt Count 240 MPV 9.6 Immature Gran % (Auto) 0.6 H Neut % (Auto) 70.8 Lymph % (Auto) 13.6 L Coal % (Auto) 10.7 H Eos % (Auto) 3.1 Baso % (Auto) 1.2 Lymph # (Auto) 0.66 L Coal # (Auto) 0.5 Eos # (Auto) 0.2 Baso # (Auto) 0.1 Abs Immat Gran (auto) 0.03 Absolute Neuts (auto) 3.4 Absolute Nucleated RBC 0.000 Nucleated RBC % 0.0 Sodium 134 L Potassium 4.2 Chloride 102 Carbon Dioxide 27 Anion Gap 5 BUN 7 Creatinine 0.50 L Estim Creat Clear Calc 64 Estimated GFR > 60 Glucose 84
[2023-12-16] MEDS: POTASSIUM CHLORIDE 20 MEQ PACKET (FOR LIQUID) 40 MEQ PO (09:29)
[2023-12-16] MEDS: ATORVASTATIN 10 MG TABLET PO (09:29)
[2023-12-16 09:30] VITALS: BP 140/70; PULSE 89; RESP 16; O2SAT 100
[2023-12-16] MEDS: METOPROLOL TARTRATE 25 MG TABLET PO (09:30)
--- NOTE | 2023-12-27 13:01 | PC.NURSE ---
Blood cx are negative.
== END 2023-12-16 13:30 | disposition home health service (06) | DRG 392 ==
LOC: ANHED 23:02 → ANH2MED 23:35
PROVIDERS: Nurse Practitioner; Nurse Practitioner Acute Care; Admitting Provider Internal Medicine; Emergency Provider Emergency Medicine; PCP Family Medicine; Visit Provider Nurse Practitioner
DX: K52.89 Other specified noninfective gastroenteritis and colitis (principal); C34.92 Malignant neoplasm of unspecified part of left bronchus or lung; C79.51 Secondary malignant neoplasm of bone; J90 Pleural effusion, not elsewhere classified; E86.0 Dehydration; D64.81 Anemia due to antineoplastic chemotherapy; J43.2 Centrilobular emphysema; K59.00 Constipation, unspecified; K44.9 Diaphragmatic hernia without obstruction or gangrene; Z85.820 Personal history of malignant melanoma of skin; Z87.891 Personal history of nicotine dependence; Z79.82 Long term (current) use of aspirin
CPT/HCPCS: 36415; 74177; 80048; 80053; 82607; 82746; 83605; 83690; 83735; 85025; 87040; 93005; 96360; 97161; 97165; 97530; 97535; 99285; A9270; G0378; J1650; J7030; J7120; Q9967

== ENCOUNTER 2023-12-18 08:43 | Outpatient (CLI) | payer MEDICARE, OTHER, SELFPAY ==
--- NOTE | ~2023-12-18 | CT_ITS ---
Clinical Indication: Metastatic cancer CT Scan of the Chest, Abdomen, and Pelvis with Contrast: Technique: Contiguous sections were acquired throughout the chest, abdomen, and pelvis after intraven ous administration of 100 cc of Omnipaque 350. Dose reduction technique was used on this scan by uti lizing automated exposure control and iterative reconstruction technique. The dose-length product (DL P) was 328.71 mGy-cm. COMPARISON: 12/13/2023, 10/12/2023 Findings: There is no evidence of any significant mediastinal, hilar or axillary lymphadenopathy. The mediastin al soft tissues and vascular structures appear normal. Small hiatal hernia noted. No pericardial effusion. No right pleural effusion. Small left pleural effusion present. Stable irregular masslike consolidation in the posterior right upper lobe. Stable focal pleural thick ening posteriorly at the right lung apex. Emphysematous change is stable from prior exam. Status post left upper lobectomy. The liver, spleen, pancreas, gallbladder, adrenals and kidneys are within normal limits. There are at herosclerotic calcifications of the aorta. No lymphadenopathy. No bowel obstruction or bowel wall thickening. There is no evidence to suggest acute appendicitis. Urinary bladder is unremarkable. No pelvic mass seen. No ascites. Stable scattered sclerotic osseous lesions are present. Impression: Stable irregular masslike consolidation posterior right upper lobe. This could reflect neoplastic dis ease and/or treated disease/posttreatment change. Correlate for history. Status post left upper lobectomy. Stable emphysema. Stable sclerotic osseous metastatic disease. Reviewed, dictated and finalized at [facility]. Impression: Stable irregular masslike consolidation posterior right upper lobe. This could reflect neoplastic disease and/or treated disease/posttreatment change. Correla te for history. Status post left upper lobectomy. Stable emphysema. Stable sclerotic osseous metastatic disease.
[2023-12-18 09:42] LABS: Estimated Glomerular Filt Rate > 60
== END 2023-12-18 08:44 | disposition home or self-care (01) ==
PROVIDERS: PCP Family Medicine; Visit Provider Internal Medicine Hematology & Oncology
DX: C79.51 Secondary malignant neoplasm of bone (principal); J43.9 Emphysema, unspecified
CPT/HCPCS: 71260; 74177; Q9967

== ENCOUNTER 2023-12-25 15:18 | Outpatient (CLI) | payer MEDICARE, OTHER, SELFPAY ==
--- NOTE | ~2023-12-25 | MR_ITS ---
EXAMINATION: MR brain/brain stem wo/w con DATE: 12/25/2023 16:53 INDICATION: METASTATIC NON SMALL CELL LUNG CANCER TECHNIQUE: Magnetic resonance imaging (MRI) of the brain and brainstem was performed with 10 mL Multi Reji intravenous contrast. Sequences included sagittal and axial T1-weighted SE, axial diffusion-teo ghted FS EPI ASSET, axial T2*-weighted GRE, axial T2-weighted FLAIR Propeller, and axial T2-weighted Propeller. Postcontrast axial and coronal T1-weighted SE was obtained. Apparent diffusion coefficient (ADC) maps were created. COMPARISON: CT brain 10/12/2023; bone scan 02/25/2023 FINDINGS: No abnormal restricted diffusion to suggest acute ischemic infarct. Tiny right thalamic lacunar infar ct. No MRI evidence of hemorrhage or extra-axial collection. No suspicious foci of susceptibility to suggest prior intraparenchymal hemorrhage. Severe confluent or patchy and confluent white matter hype rintensity, likely representing severe small vessel ischemic disease. Moderate generalized parenchyma l volume loss. The basilar cisterns are patent. Flow voids are preserved. Paranasal sinuses are withi n normal limits. Bilateral lens replacements. Globes and orbital contents are otherwise within normal limits. No abnormal enhancing lesions detected. Sclerotic lesions in the skull vault near the vertex . IMPRESSION: No MR evidence of brain metastases. Two sclerotic lesions in the skull vault near the vertex. No abnormal activity detected in the prior bone scan of 02/25/2023. Repeat bone scanning may be helpful for further characterization. Moderate atrophy and severe chronic white matter change. Reviewed, dictated and finalized at location K. IMPRESSION: No MR evidence of brain metastases. Two sclerotic lesions in the skull vault near the vertex. No abnormal activity detected in the prior bone scan of 02/25/2023. Repeat bone scanning may be helpf ul for further characterization. Moderate atrophy and severe chronic white matter change.
== END 2023-12-25 15:19 | disposition home or self-care (01) ==
PROVIDERS: PCP Family Medicine; Visit Provider Internal Medicine Hematology & Oncology
DX: C34.90 Malignant neoplasm of unspecified part of unspecified bronchus or lung (principal); G31.9 Degenerative disease of nervous system, unspecified; R90.82 White matter disease, unspecified
CPT/HCPCS: 70553; A9577

== ENCOUNTER 2024-01-09 15:21 | Inpatient (IN) | payer MEDICARE, OTHER, SELFPAY ==
[2024-01-09 15:31] VITALS: BP 158/79; PULSE 105; RESP 16; TEMP 36.7; O2SAT 99
--- NOTE | 2024-01-09 15:53 | ECG_ITS ---
Test Date: 2024-01-09 16:51:14 Measurements Intervals [place] Rate: 88 P: 82 NV: 144 QRS: 67 QRSD: 70 T: 57 QT: 338 QTc: 411 Interpretive Statements SINUS RHYTHM PREVIOUS ANTEROSEPTAL INFARCTION ABNORMAL ECG Compared to ECG 12/13/2023 19:31:16 NO SIGNIFICANT DIFFERENCE Electronically Signed On 01-10-2024 13:36:58 CDT by Chandler Jane M.D.
[2024-01-09 16:14] LABS: Basophils Percent Auto 0.4 % (0.2-1.2); Eosinophils Percent Auto 0.2 % (0-4.4); Hematocrit 35.8 % (37.0-47.0); Hemoglobin 12.8 g/dL (12.0-15.0); Immature Granulocyte Absolute 0.04 K/mm3 (0.00-0.031); Immature Granulocyte Percent A 0.4 % (0-0.5); Lymphocytes Absolute Auto 0.29 K/mm3 (0.9-3.2); Lymphocytes Percent Auto 2.9 % (18.3-44.2); Mean Corpuscular HGB Conc 35.8 g/dl (32-36); Mean Corpuscular Hemoglobin 32.2 pg (26-34); Mean Corpuscular Volume 90.2 fl (80-100); Monocytes Percent Auto 10.3 % (2.6-8.5); Neutrophils Absolute Auto 8.6 K/mm3 (1.3-6.7); Neutrophils Percent Auto 85.8 % (45.5-73.1); Platelet Count Result 260 k/mm3 (150-375); Red Blood Count 3.97 M/mm3 (4.2-5.4); Red Cell Distribution Width 15.4 % (11.5-14.5); White Blood Count 10.1 K/mm3 (4.5-10.0)
[2024-01-09 16:26] LABS: Alanine Aminotransferase 14 U/L (6-35); Albumin Level 3.6 g/dL (3.5-5.1); Alkaline Phosphatase 69 U/L (38-126); Anion Gap 9 mmol/L (4-12); Aspartate Amino Transferase 22 U/L (14-36); Bilirubin,Total 1.1 mg/dL (0.2-1.3); Blood Urea Nitrogen 17 mg/dL (7-17); Calcium 8.3 mg/dL (8.4-10.2); Carbon Dioxide 24 mmol/L (22-30); Chloride 100 mmol/L (98-107); Estimated CRCL calculation 64 ml/min; Estimated Glomerular Filt Rate > 60; Glucose 79 mg/dL (65-110); Potassium 3.8 mmol/L (3.4-5.0); Sodium 133 mmol/L (137-145)
--- NOTE | 2024-01-09 16:26 | ED.FALL ---
HPI - Fall General Chief Complaint: Fall Stated Complaint: GLF Time Seen by Provider: 01/09/24 15:27 History of Present Illness HPI Narrative: 78-year-old female presenting to the emergency department for evaluation for weight loss and failure to thrive. Patient is diagnosed with lung and bone cancer but due to excessive weight loss oncology will not start chemotherapy. Patient is currently in the independent living section her care facility but they state that she is such high care that they are recommending she be transferred to the [facility] portion and patient is not accepted back to the independent living. Patient's oncologist has told her that if she does not start to gain weight than she has options of a G-tube or she can be placed on hospice. When patient was confronted on this patient is unsure if she wants hospice or the feeding tube. Patient presented to the emergency department today for worsening weakness and having a ground level fall. Patient denies any pain or injury from the fall today. Related Data Home Medications Medication Instructions Recorded Confirmed aspirin 81 mg tablet 81 mg PO DAILY 05/10/22 12/14/23 calcium carb-ergocalciferol (vit 600 tablet PO DAILY 05/10/22 12/14/23 D2) 600 mg calcium-200 unit tablet omega-3 fatty acids-vitamin E 1,000 cap PO DAILY 05/10/22 12/14/23 1,000 mg capsule vit C 250 mg-vit E 90 mg-zinc 40 1 tablet PO BID 05/10/22 12/14/23 mg-copper 1 [id number] capsule (PreserVision AREDS-2) atorvastatin 10 mg tablet 10 mg PO 3XW 10/12/23 12/14/23 folic acid 1 mg tablet 1 mg PO DAILY 12/14/23 12/14/23 metoprolol succinate 25 mg 25 mg PO BID 12/14/23 12/14/23 tablet,extended release 24 hr Allergies Allergy/AdvReac Type Severity Reaction Status Date / Time No Known Allergies Allergy Verified 12/13/23 19:23 Review of Systems Review of Systems: All systems reviewed & are unremarkable except as noted in HPI and below PMFSH Past Medical History Medical History Anemia due to chemotherapy Benign essential HTN Emphysema lung HH (hiatus hernia) History of tobacco abuse Lung cancer Left and later R, most recently L agan. Malignant melanoma of right thigh Surgical History Surgical History History of appendectomy History of melanoma excision S/P partial lobectomy of lung Family History Family History Other Diabetes mellitus Hypertension Unknown family medical history Social History Social History Social History: Single Smoking packs per day: 0.5 Smoking cigarettes per day: 10.0 Years smoked: 30 Smoking pack-years: 15.00 Smoking status: Former smoker Tobacco type: cigarettes Second hand tobacco smoke exposure: No Smoking end date: 03/12/11 Alcohol intake: never Substance use: never Substance use type: does not use Do You Feel Safe in your Home?: Yes Lack of Transportation: No Lack of Food: Never True Current Housing: I Have Housing Concerned About Future Housing: No Difficulty Paying Gas/Electric Bills: No Difficulty Paying for Meds: No Currently Unemployed: No Education: Associate Degree Difficulty w/ Childcare or Family Care: No Living arrangements: assisted living Occupation/Education: retired Gender identity (if verbalized by the patient): Female Sexual Orientation (if Verbalized by the Patient): Straight or Heterosexual Spiritual care concerns: No Exam Narrative: APPEARANCE: Cachectic-appearing HEAD: normocephalic, atraumatic. EYES: PERRLA/EOMI, conjunctivae clear. NOSE: Normal no drainage EARS:TMS clear with good light reflex. THROAT: Pharynx clear, no exudate. NECK: Supple. No adenopathy, no masses. RESPIRATORY: Airway patent, respirations nonlabored. C
[2024-01-09 16:30] VITALS: BP 151/71; PULSE 81; RESP 16; TEMP 36.6; O2SAT 100
[2024-01-09 16:36] LABS: Platelet Estimate Adequate (Adequate)
[2024-01-09 16:37] LABS: Anisocytosis 2+; Ovalocytes 3+; Poikilocytosis 2+; Schistocytes None Seen
[2024-01-09 16:50] LABS: Influenza A QL RT-PCR Negative (Negative); Influenza B QL RT-PCR Negative (Negative); RSV RNA, RT-PCR Negative (Negative); SARS-CoV-2 RNA PCR Negative (Negative)
[2024-01-09 17:00] VITALS: BP 154/76; PULSE 81; RESP 16; TEMP 36.6; O2SAT 100
[2024-01-09 17:52] LABS: Add Urine Microscopic? YES; Appearance Urine Clear (Clear); Bacteria Urine None Seen /hpf; Bilirubin Urine Negative (Negative); Blood Urine Negative (Negative); Color Urine Yellow (Yellow); Glucose Urine UA Negative (Negative); Ketones Urine 1+ mg/dL (Negative); Leukocyte Esterase Ur Negative LEU/UL (Negative); Nitrate Urine Negative (Negative); Non Pathogenic Casts 0-2; Protein Urine Trace mg/dL (Negative); RBC Urine 0-2 /hpf (0-2); Specific Grav Ur 1.018 (1.001-1.035); Squamous Epithelial Cell Urine None Seen /hpf (Few); WBC Urine 0-5 /hpf (0-3)
[2024-01-09 18:00] VITALS: BP 147/69; PULSE 77; RESP 20; TEMP 36.6; O2SAT 99
[2024-01-09] MEDS: SODIUM CHLORIDE 0.9% IV 1,000 ML 999 ML IV CONT (18:08)
--- NOTE | 2024-01-09 18:46 | PM.IMHP ---
H&P: HPI History of Present Illness Date/Time: 01/09/24 18:46 Chief Complaint: Fall, Weakness Narrative: 78 y/o F presents here with ground level fall and generalized weakness with PMH of recurrent metastatic lung cancer, HTN, emphysema, and malignant melanoma of the right thigh (s/p excision). The patient presents here via EMS from [facility] for further evaluation after a ground level fall and generalized weakness. Patient reports she felt weak and fell. Patient reports that she went onto right hip, no head strike or loss of consciousness. Denies any pain or complaint post fall. Has been experiencing generalized weakness that has been worsening and accompanied by general failure to thrive. 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 Previously on maintenance treatment with Alimta and Keytruda which was initiated in November of 2021. Stopped in October (by patient per her report) in October of 2022. Most recent CT in December showed stable masslike consolidation in the right upper lobe without further evidence of metastatic disease other than the known stable bone metastasis. Has been unable to receive further chemo treatments due to weight loss. Reportedly has been told she needs to gain approximately 10 lb to continue chemotherapy. Patient presented with G-tube placement versus hospice today, patient is unsure how she would like to proceed. [facility] also concerned that patient is no longer safe to remain in the independent living section of her facility. They recommend that she be transferred to a half-way or the half-way portion of her current facility. Initial VS at presentation: 98.1? F, HR 105, RR 16, 158/79, and 99% on RA. ED workup showed: WBC 10.1, no anemia, sodium 133, creatinine 0.5 and GFR >60, calcium 8.3, UA showed 1+ ketones, viral PCR negative. Review of Systems Review of Systems: All systems reviewed & are unremarkable except as noted in HPI and below PMFSH Past Medical History Medical History Anemia due to chemotherapy Benign essential HTN Emphysema lung HH (hiatus hernia) History of tobacco abuse Lung cancer Left and later R, most recently L agan. Malignant melanoma of right thigh Surgical History Surgical History History of appendectomy History of melanoma excision S/P partial lobectomy of lung Family History Family History Other Diabetes mellitus Hypertension Unknown family medical history Social History Social History Social History: Single Smoking packs per day: 0.25 Smoking cigarettes per day: 5.0 Years smoked: 30 Smoking pack-years: 7.50 Smoking status: Former smoker Tobacco type: cigarettes Second hand tobacco smoke exposure: No Smoking end date: 06/03/11 Alcohol intake: never Substance use: never Substance use type: does not use Do You Feel Safe in your Home?: Yes Lack of Transportation: YES Lack of Food: Never True Current Housing: I Have Housing Concerned About Future Housing: No Difficulty Paying Gas/Electric Bills: No Difficulty Paying for Meds: No Currently Unemployed: No Education: High School Diploma/GED Difficulty w/ Childcare or Family Care: No Living arrangements: assisted living Occupation/Education: retired Gender identity (if verbalized by the patient): Female Sexual Orientation (if Verbalized by the Patient): Straight or Heterosexual Spiritual care concerns: No Meds Home Medications and Allergies Home Medications Medication Instructions Recorded Confirmed Type aspirin 81 mg tablet 81 mg PO DAILY 05/10/22 01/09/24 History calcium carb-ergocalciferol (vit 600 tablet PO DAILY 05/10/22 01/09/24 History D2) 600 mg c
--- NOTE | 2024-01-09 19:27 | ADMGEN ---
This patient, Elzbieta Coy, was admitted to 3 Med Surg Room 331-01. Patient/family oriented to hospital policies and general routines including ID bracelet, bed and alarms, visiting hours, pain management, procedures, bathroom and other care routines, personal items, smoking policy, room service/diet, and visiting hours. Information on how to activate the Rapid Response Team has been discussed. Patient/Family are encouraged to report perceived risks to care and to ask questions if they do not understand what they are told or what they should do.
[2024-01-09 20:00] VITALS: BP 103/49; BP 122/80; PULSE 107; PULSE 76; RESP 16; RESP 20; TEMP 36.2; TEMP 36.4; O2SAT 100; O2SAT 97
[2024-01-10] MEDS: LACTATED RINGERS 1,000 ML 75 ML IV CONT ×2 (00:40→16:49)
[2024-01-10 06:00] VITALS: BP 135/63; PULSE 71; RESP 16; TEMP 36.3; O2SAT 100
[2024-01-10] MEDS: polyethylene glycoL 3350 17 GM POWD.PACK PO (09:45)
[2024-01-10 09:47] VITALS: PULSE 71
[2024-01-10] MEDS: FOLIC ACID 1 MG TABLET PO (09:47)
[2024-01-10] MEDS: METOPROLOL TARTRATE 25 MG TABLET PO ×2 (09:47→20:37)
[2024-01-10] MEDS: CALCIUM/VITAMIN D 500 MG/5 MCG (200 I.U.) TABLET PO (09:47)
[2024-01-10] MEDS: PANTOPRAZOLE 40 MG TABLET PO (09:47)
[2024-01-10] MEDS: OPTI-GEN TAB 1 TABLET PO ×2 (09:47→16:49)
[2024-01-10] MEDS: ASPIRIN 81 MG CHEWABLE TABLET PO (09:47)
[2024-01-10] MEDS: ATORVASTATIN 10 MG TABLET PO (09:49)
[2024-01-10 11:38] VITALS: BMI 20.4
[2024-01-10 14:00] VITALS: BP 145/68; PULSE 70; RESP 20; TEMP 36.6; O2SAT 100
--- NOTE | 2024-01-10 14:04 | PM.IMPN ---
Progress Note: A&P Assessment and Plan (1) Falls: Qualifiers: Encounter type: initial encounter Qualified Code(s): W19.XXXA - Unspecified fall, initial encounter Code(s): W19.XXXA - Unspecified fall, initial encounter Status: Acute Assessment and Plan: 01/10/24: Continue PT and OT Continue fall precaution (2) Metastatic lung cancer (metastasis from lung to other site): Qualifiers: Laterality: unspecified laterality Qualified Code(s): C34.90 - Malignant neoplasm of unspecified part of unspecified bronchus or lung Code(s): C34.90 - Malignant neoplasm of unspecified part of unspecified bronchus or lung Status: Chronic Assessment and Plan: 01/10/24: Was being followed by Dr. Murillo Stop treatment back in October was on Alimta and Keytruda Contemplating G-tube placement versus hospice, unsure how to proceed Care coordination following for possible hospice referral versus prison placement (3) Malignant cachexia: Code(s): R64 - Cachexia Status: Acute Assessment and Plan: 01/10/24: dental office assistant consulted Has lost a total of 50 lb. (4) Benign essential HTN: Code(s): I10 - Essential (primary) hypertension Status: Chronic Assessment and Plan: 01/10/24: Continue metoprolol Continue monitor Time Spent With Patient Time with patient: Greater than 35 minutes Subjective Date/time seen: 01/10/24 14:04 Interval history: Interval history: This is an 78 year old female who presented to the hospital with ground level fall. Work up in the hospital includes initial labs which showed a white blood cell count of 10.1, sodium 133, otherwise unremarkable. UA was obtained and showed 1+ urine ketone otherwise negative. Respiratory panel was negative for influenza a and B, RSV, COVID. Patient has history of recurrent metastatic lung cancer which is stage IV and was previously maintained on Alimta and Keytruda since November of 2021 but had to be stopped back in October of this year due to the patient's weakness and weight loss. She has been unable to receive further chemo treatments due to this. Patient has been living in the independent living section of [facility] considering her weakness and recent fall she is unable to return back to that facility. The facility recommends that she be transferred to the prison side. Patient contemplating G-tube placement versus hospice. 8/9/24: Patient denies any fever, chills, nausea, vomiting, diarrhea, abdominal pain, chest pain, shortness a breath. She is still on the fence about whether she wants to do a G-tube or she wants to just go for hospice. Review of Systems Review of Systems: All systems reviewed & are unremarkable except as noted in HPI and below Constitutional: Constitutional: Reports as per HPI and Reports no additional constitutional complaints Eyes: Eyes: Reports as per HPI and Reports no additional eye complaints ENT: Reports system reviewed and no additional complaints, except as documented and Reports as per HPI Cardiovascular: Cardiovascular: Reports as per HPI and Reports no additional cardiovascular complaints Respiratory: Respiratory: Reports as per HPI and Reports no additional respiratory complaints Gastrointestinal: Gastrointestinal: Reports as per HPI and Reports no additional gastrointestinal complaints Genitourinary: Genitourinary: Reports no additional female genitourinary complaints and Reports as per HPI Musculoskeletal: Musculoskeletal: Reports no additional musculoskeletal complaints and Reports as per HPI Integumentary/Breasts: Skin/Breast: Reports system reviewed and no additional complaints, except as docu and Reports as per HPI Neurologic: Reports system reviewed and no additional complaints, except as documented and Reports as per HPI Psychiatric: Psychiatric: Reports no additional psychiatric complaints and Reports as per HPI Exam Narrativ
[2024-01-10 20:00] VITALS: PULSE 80; RESP 13; O2SAT 100
[2024-01-10 20:37] VITALS: PULSE 70
[2024-01-10 21:21] VITALS: BP 142/55; PULSE 80; RESP 13; TEMP 36.3; O2SAT 100
[2024-01-11] VITALS (7 sets, daily range): BP systolic 112–162; BP diastolic 67–70; PULSE 90–100; RESP 12–14; TEMP 36.1–37; O2SAT 99
[2024-01-11] MEDS: LACTATED RINGERS 1,000 ML 75 ML IV CONT (07:09)
--- NOTE | 2024-01-11 08:52 | PCOTNOTE ---
Attempted OT evaluation; pt. refused stating she did not feel up to it. Will attempt again as able.
[2024-01-11 09:02] LABS: Basophils Percent Auto 0.2 % (0.2-1.2); Eosinophils Percent Auto 0.1 % (0-4.4); Hematocrit 41.3 % (37.0-47.0); Hemoglobin 14.3 g/dL (12.0-15.0); Immature Granulocyte Absolute 0.07 K/mm3 (0.00-0.031); Immature Granulocyte Percent A 0.5 % (0-0.5); Lymphocytes Absolute Auto 0.25 K/mm3 (0.9-3.2); Lymphocytes Percent Auto 1.9 % (18.3-44.2); Mean Corpuscular HGB Conc 34.6 g/dl (32-36); Mean Corpuscular Hemoglobin 31.2 pg (26-34); Mean Corpuscular Volume 90.2 fl (80-100); Mean Platelet Volume 9.7 fl (7.4-10.4); Monocytes Percent Auto 7.4 % (2.6-8.5); Neutrophils Absolute Auto 11.8 K/mm3 (1.3-6.7); Neutrophils Percent Auto 89.9 % (45.5-73.1); Platelet Count Result 289 k/mm3 (150-375); Red Blood Count 4.58 M/mm3 (4.2-5.4); Red Cell Distribution Width 15.4 % (11.5-14.5); White Blood Count 13.1 K/mm3 (4.5-10.0)
[2024-01-11 09:21] LABS: Alanine Aminotransferase 16 U/L (6-35); Albumin Level 3.8 g/dL (3.5-5.1); Alkaline Phosphatase 78 U/L (38-126); Anion Gap 8 mmol/L (4-12); Aspartate Amino Transferase 26 U/L (14-36); Bilirubin,Total 1.5 mg/dL (0.2-1.3); Blood Urea Nitrogen 10 mg/dL (7-17); Calcium 8.4 mg/dL (8.4-10.2); Carbon Dioxide 29 mmol/L (22-30); Chloride 94 mmol/L (98-107); Estimated CRCL calculation 78 ml/min; Estimated Glomerular Filt Rate > 60; Glucose 111 mg/dL (65-110); Potassium 3.3 mmol/L (3.4-5.0); Sodium 131 mmol/L (137-145)
[2024-01-11 09:43] LABS: Ovalocytes 2+; Platelet Estimate Adequate (Adequate); Poikilocytosis 2+; Schistocytes None Seen
[2024-01-11] MEDS: METOPROLOL TARTRATE 25 MG TABLET PO ×2 (10:14→21:07)
[2024-01-11] MEDS: CALCIUM/VITAMIN D 500 MG/5 MCG (200 I.U.) TABLET PO (10:14)
[2024-01-11] MEDS: FOLIC ACID 1 MG TABLET PO (10:14)
[2024-01-11] MEDS: OMEGA 3 POLYUNSAT FATTY ACIDS 1 GM CAP PO (10:14)
[2024-01-11] MEDS: ASPIRIN 81 MG CHEWABLE TABLET PO (10:15)
[2024-01-11] MEDS: PANTOPRAZOLE 40 MG TABLET PO (10:15)
[2024-01-11] MEDS: OPTI-GEN TAB 1 TABLET PO ×2 (10:15→16:58)
--- NOTE | 2024-01-11 11:40 | PCPTNOTE ---
attempted PT eval, pt refused to get out of bed, will follow
--- NOTE | 2024-01-11 12:14 | PM.IMPN ---
Progress Note: A&P Assessment and Plan (1) Falls: Qualifiers: Encounter type: initial encounter Qualified Code(s): W19.XXXA - Unspecified fall, initial encounter Code(s): W19.XXXA - Unspecified fall, initial encounter Status: Acute Assessment and Plan: 01/10/24: Continue PT and OT Continue fall precaution 01/11/24: No change to current treatment plan (2) Metastatic lung cancer (metastasis from lung to other site): Qualifiers: Laterality: unspecified laterality Qualified Code(s): C34.90 - Malignant neoplasm of unspecified part of unspecified bronchus or lung Code(s): C34.90 - Malignant neoplasm of unspecified part of unspecified bronchus or lung Status: Chronic Assessment and Plan: 01/10/24: Was being followed by Dr. Murilol Stop treatment back in October was on Alimta and Keytruda Contemplating G-tube placement versus hospice, unsure how to proceed Care coordination following for possible hospice referral versus [facility] placement 01/11/24: Waiting for daughter to come in from out of town to discuss hospice versus G-tube, and code status. Care coordination following (3) Malignant cachexia: Code(s): R64 - Cachexia Status: Acute Assessment and Plan: 01/10/24: heeler consulted Has lost a total of 50 lb. 01/11/24: Will start Marinol today Very poor intake (4) Benign essential HTN: Code(s): I10 - Essential (primary) hypertension Status: Chronic Assessment and Plan: 01/10/24: Continue metoprolol Continue monitor 01/11/24: No change to current treatment plan Time Spent With Patient Time with patient: 15 - 25 minutes Subjective Date/time seen: 01/11/24 12:14 Interval history: Interval history: This is an 78 year old female who presented to the hospital with ground level fall. Work up in the hospital includes initial labs which showed a white blood cell count of 10.1, sodium 133, otherwise unremarkable. UA was obtained and showed 1+ urine ketone otherwise negative. Respiratory panel was negative for influenza a and B, RSV, COVID. Patient has history of recurrent metastatic lung cancer which is stage IV and was previously maintained on Alimta and Keytruda since November of 2021 but had to be stopped back in October of this year due to the patient's weakness and weight loss. She has been unable to receive further chemo treatments due to this. Patient has been living in the independent living section of [facility] considering her weakness and recent fall she is unable to return back to that facility. The facility recommends that she be transferred to the [facility] side. Patient contemplating G-tube placement versus hospice. 01/11/24: Patient denies any new complaints today. She has been waiting for her daughter to come in from [facility] to discuss code status, hospice verses G-tube placed. Review of Systems Review of Systems: All systems reviewed & are unremarkable except as noted in HPI and below Constitutional: Constitutional: Reports as per HPI and Reports no additional constitutional complaints Eyes: Eyes: Reports as per HPI and Reports no additional eye complaints ENT: Reports system reviewed and no additional complaints, except as documented and Reports as per HPI Cardiovascular: Cardiovascular: Reports as per HPI and Reports no additional cardiovascular complaints Respiratory: Respiratory: Reports as per HPI and Reports no additional respiratory complaints Gastrointestinal: Gastrointestinal: Reports as per HPI and Reports no additional gastrointestinal complaints Genitourinary: Genitourinary: Reports no additional female genitourinary complaints and Reports as per HPI Musculoskeletal: Musculoskeletal: Reports no additional musculoskeletal complaints and Reports as per HPI Integumentary/Breasts: Skin/Breast: Reports system reviewed and no additional complaints, except as docu and Reports a
--- NOTE | 2024-01-11 14:04 | PC.NURSE ---
Assuming care for pt
--- NOTE | 2024-01-11 16:22 | PC.NURSE ---
Care assumed from HEBER Farooq.
[2024-01-11] MEDS: droNABinol (*CRX) 2.5 MG CAPSULE PO (16:58)
[2024-01-12 05:27] VITALS: BP 132/49; PULSE 81; RESP 14; TEMP 36.4; O2SAT 98
[2024-01-12 06:11] LABS: Basophils Absolute Auto 0.1 K/mm3 (0.0-0.1); Basophils Percent Auto 0.5 % (0.2-1.2); Eosinophils Absolute Auto 0.1 K/mm3 (0-0.3); Eosinophils Percent Auto 0.6 % (0-4.4); Hematocrit 34.7 % (37.0-47.0); Hemoglobin 12.3 g/dL (12.0-15.0); Immature Granulocyte Absolute 0.06 K/mm3 (0.00-0.031); Immature Granulocyte Percent A 0.6 % (0-0.5); Lymphocytes Absolute Auto 0.54 K/mm3 (0.9-3.2); Lymphocytes Percent Auto 5.1 % (18.3-44.2); Mean Corpuscular HGB Conc 35.4 g/dl (32-36); Mean Corpuscular Volume 90.4 fl (80-100); Mean Platelet Volume 9.7 fl (7.4-10.4); Monocytes Percent Auto 9.7 % (2.6-8.5); Neutrophils Absolute Auto 8.9 K/mm3 (1.3-6.7); Neutrophils Percent Auto 83.5 % (45.5-73.1); Platelet Count Result 257 k/mm3 (150-375); Red Blood Count 3.84 M/mm3 (4.2-5.4); Red Cell Distribution Width 15.5 % (11.5-14.5); White Blood Count 10.7 K/mm3 (4.5-10.0)
[2024-01-12 06:31] LABS: Alanine Aminotransferase 14 U/L (6-35); Albumin Level 3.2 g/dL (3.5-5.1); Alkaline Phosphatase 71 U/L (38-126); Anion Gap 6 mmol/L (4-12); Aspartate Amino Transferase 21 U/L (14-36); Bilirubin,Total 1.4 mg/dL (0.2-1.3); Blood Urea Nitrogen 15 mg/dL (7-17); Calcium 8.5 mg/dL (8.4-10.2); Carbon Dioxide 31 mmol/L (22-30); Chloride 93 mmol/L (98-107); Estimated CRCL calculation 64 ml/min; Estimated Glomerular Filt Rate > 60; Glucose 103 mg/dL (65-110); Potassium 3.6 mmol/L (3.4-5.0); Sodium 130 mmol/L (137-145)
[2024-01-12 09:18] VITALS: PULSE 81
[2024-01-12] MEDS: OMEGA 3 POLYUNSAT FATTY ACIDS 1 GM CAP PO (09:18)
[2024-01-12] MEDS: METOPROLOL TARTRATE 25 MG TABLET PO (09:18)
[2024-01-12] MEDS: FOLIC ACID 1 MG TABLET PO (09:18)
[2024-01-12] MEDS: CALCIUM/VITAMIN D 500 MG/5 MCG (200 I.U.) TABLET PO (09:18)
[2024-01-12] MEDS: droNABinol (*CRX) 2.5 MG CAPSULE PO (09:18)
--- NOTE | 2024-01-12 09:18 | PM.IMPN ---
Progress Note: A&P Assessment and Plan (1) Falls: Qualifiers: Encounter type: initial encounter Qualified Code(s): W19.XXXA - Unspecified fall, initial encounter Code(s): W19.XXXA - Unspecified fall, initial encounter Status: Acute Assessment and Plan: 01/10/24: Continue PT and OT Continue fall precaution 01/11/24: No change to current treatment plan (2) Metastatic lung cancer (metastasis from lung to other site): Qualifiers: Laterality: unspecified laterality Qualified Code(s): C34.90 - Malignant neoplasm of unspecified part of unspecified bronchus or lung Code(s): C34.90 - Malignant neoplasm of unspecified part of unspecified bronchus or lung Status: Chronic Assessment and Plan: 01/10/24: Was being followed by Dr. Murillo Stop treatment back in October was on Alimta and Keytruda Contemplating G-tube placement versus hospice, unsure how to proceed Care coordination following for possible hospice referral versus residential placement 01/11/24: Waiting for daughter to come in from out of town to discuss hospice versus G-tube, and code status. Care coordination following 01/11- discussed with daughter- will proceed with hospice/comfort measures. (3) Malignant cachexia: Code(s): R64 - Cachexia Status: Acute Assessment and Plan: 01/10/24: cable maker consulted Has lost a total of 50 lb. 01/11/24: Will start Marinol today Very poor intake (4) Benign essential HTN: Code(s): I10 - Essential (primary) hypertension Status: Chronic Assessment and Plan: 01/10/24: Continue metoprolol Continue monitor 01/11/24: No change to current treatment plan Time Spent With Patient Time with patient: Greater than 35 minutes Subjective Date/time seen: 01/12/24 09:18 Interval history: Interval history: This is an 78 year old female who presented to the hospital with ground level fall. Work up in the hospital includes initial labs which showed a white blood cell count of 10.1, sodium 133, otherwise unremarkable. UA was obtained and showed 1+ urine ketone otherwise negative. Respiratory panel was negative for influenza a and B, RSV, COVID. Patient has history of recurrent metastatic lung cancer which is stage IV and was previously maintained on Alimta and Keytruda since November of 2021 but had to be stopped back in October of this year due to the patient's weakness and weight loss. She has been unable to receive further chemo treatments due to this. Patient has been living in the independent living section of [facility] considering her weakness and recent fall she is unable to return back to that facility. The facility recommends that she be transferred to the residential side. Patient contemplating G-tube placement versus hospice. 01/11/24: Patient denies any new complaints today. She has been waiting for her daughter to come in from [facility] to discuss code status, hospice verses G-tube placed. 01/11- Pt is seen and examined today. Daughter at the bedside- states that pt would not want Gtube and furtehr treatments- wants to proceed with hospice. Discussed with pt's nurse. ordered care coordination consult for hospice. Review of Systems Review of Systems: All systems reviewed & are unremarkable except as noted in HPI and below Constitutional: Constitutional: Reports as per HPI and Reports no additional constitutional complaints Eyes: Eyes: Reports as per HPI and Reports no additional eye complaints ENT: Reports system reviewed and no additional complaints, except as documented and Reports as per HPI Cardiovascular: Cardiovascular: Reports as per HPI and Reports no additional cardiovascular complaints Respiratory: Respiratory: Reports as per HPI and Reports no additional respiratory complaints Gastrointestinal: Gastrointestinal: Reports as per HPI and Reports no additional gastrointestinal complaints Genitourinary:
[2024-01-12] MEDS: PANTOPRAZOLE 40 MG TABLET PO (09:19)
[2024-01-12] MEDS: ASPIRIN 81 MG CHEWABLE TABLET PO (09:19)
[2024-01-12] MEDS: OPTI-GEN TAB 1 TABLET PO (09:19)
[2024-01-12 14:00] VITALS: BP 128/52; PULSE 86; RESP 16; TEMP 36.1; O2SAT 97
[2024-01-12 21:12] VITALS: BP 123/57; PULSE 80; RESP 16; TEMP 36; O2SAT 98
[2024-01-13 05:13] VITALS: BP 122/55; PULSE 82; RESP 16; TEMP 36.2; O2SAT 98
[2024-01-13 06:39] LABS: Basophils Percent Auto 0.4 % (0.2-1.2); Eosinophils Absolute Auto 0.1 K/mm3 (0-0.3); Eosinophils Percent Auto 0.8 % (0-4.4); Hematocrit 34.8 % (37.0-47.0); Hemoglobin 12.1 g/dL (12.0-15.0); Immature Granulocyte Absolute 0.04 K/mm3 (0.00-0.031); Immature Granulocyte Percent A 0.4 % (0-0.5); Immature Platelet Fraction Pct 2.3 % (0.9-11.2); Lymphocytes Absolute Auto 0.55 K/mm3 (0.9-3.2); Lymphocytes Percent Auto 5.7 % (18.3-44.2); Mean Corpuscular HGB Conc 34.8 g/dl (32-36); Mean Corpuscular Hemoglobin 32.5 pg (26-34); Mean Corpuscular Volume 93.5 fl (80-100); Mean Platelet Volume 9.8 fl (7.4-10.4); Monocytes Absolute Auto 1.1 K/mm3 (0.1-0.6); Neutrophils Absolute Auto 7.9 K/mm3 (1.3-6.7); Neutrophils Percent Auto 81.7 % (45.5-73.1); Platelet Count Result 256 k/mm3 (150-375); Red Blood Count 3.72 M/mm3 (4.2-5.4); Red Cell Distribution Width 15.7 % (11.5-14.5); White Blood Count 9.7 K/mm3 (4.5-10.0)
[2024-01-13 06:49] LABS: Alanine Aminotransferase 14 U/L (6-35); Albumin Level 3.3 g/dL (3.5-5.1); Alkaline Phosphatase 70 U/L (38-126); Anion Gap 4 mmol/L (4-12); Aspartate Amino Transferase 26 U/L (14-36); Blood Urea Nitrogen 16 mg/dL (7-17); Calcium 8.4 mg/dL (8.4-10.2); Carbon Dioxide 31 mmol/L (22-30); Chloride 96 mmol/L (98-107); Estimated CRCL calculation 64 ml/min; Estimated Glomerular Filt Rate > 60; Glucose 96 mg/dL (65-110); Potassium 3.9 mmol/L (3.4-5.0); Sodium 131 mmol/L (137-145)
[2024-01-13 08:01] VITALS: PULSE 97
[2024-01-13] MEDS: polyethylene glycoL 3350 17 GM POWD.PACK PO (08:01)
[2024-01-13] MEDS: CALCIUM/VITAMIN D 500 MG/5 MCG (200 I.U.) TABLET PO (08:01)
[2024-01-13] MEDS: FOLIC ACID 1 MG TABLET PO (08:01)
[2024-01-13] MEDS: droNABinol (*CRX) 2.5 MG CAPSULE PO (08:01)
[2024-01-13] MEDS: METOPROLOL TARTRATE 25 MG TABLET PO (08:01)
[2024-01-13] MEDS: ASPIRIN 81 MG CHEWABLE TABLET PO (08:01)
[2024-01-13] MEDS: OPTI-GEN TAB 1 TABLET PO (08:01)
[2024-01-13] MEDS: PANTOPRAZOLE 40 MG TABLET PO (08:03)
[2024-01-13] MEDS: OMEGA 3 POLYUNSAT FATTY ACIDS 1 GM CAP PO (08:03)
[2024-01-13] MEDS: ATORVASTATIN 10 MG TABLET PO (08:05)
[2024-01-13 08:21] VITALS: PULSE 97; O2SAT 97
--- NOTE | 2024-01-13 11:26 | P.DS_ITS ---
DS: Admitting Diagnosis Discharge Date 01/13/2024 Admitting Diagnosis 1) Failure to Thrive 2) Metastatic Lung Cancer 3) Malignant Cachexia 4) Hypertension DS: Discharge Diagnosis Discharge Diagnosis (1) Falls: Qualifiers: Encounter type: initial encounter Qualified Code(s): W19.XXXA - Unspecified fall, initial encounter Code(s): W19.XXXA - Unspecified fall, initial encounter Status: Acute Assessment and Plan: 01/10/24: * Continue PT and OT * Continue fall precaution 01/11/24: * No change to current treatment plan 01/13/2024: Date of discharge -patient continues to be high fall risk. She has chosen to discharge back to [facility] on hospice therapy. During the remaining time of her hospitalization she will be monitored closely for safety and falls. (2) Metastatic lung cancer (metastasis from lung to other site): Qualifiers: Laterality: unspecified laterality Qualified Code(s): C34.90 - Malignant neoplasm of unspecified part of unspecified bronchus or lung Code(s): C34.90 - Malignant neoplasm of unspecified part of unspecified bronchus or lung Status: Chronic Assessment and Plan: 01/10/24: * Was being followed by Dr. Murillo * Stop treatment back in October was on Alimta and Keytruda * Contemplating G-tube placement versus hospice, unsure how to proceed * Care coordination following for possible hospice referral versus group home placement 01/11/24: * Waiting for daughter to come in from out of town to discuss hospice versus G- tube, and code status. * Care coordination following * 01/11- discussed with daughter- will proceed with hospice/comfort measures. 01/13/2024: Date of discharge -patient has chosen these hospice and will be discharged home with hospice as soon as [facility] is prepared to accept her once the equipment has been delivered. Patient states her pain is well controlled. (3) Malignant cachexia: Code(s): R64 - Cachexia Status: Acute Assessment and Plan: 01/10/24: * backend developer consulted * Has lost a total of 50 lb. 01/11/24: * Will start Marinol today * Very poor intake 01/13/2024: Date of discharge -patient discharging home today with hospice. (4) Benign essential HTN: Code(s): I10 - Essential (primary) hypertension Status: Chronic Assessment and Plan: 01/10/24: * Continue metoprolol * Continue monitor 01/11/24: * No change to current treatment plan 01/13/2024: Date of discharge -no change to current treatment plan, however patient is discharged home today with hospice. Plan Discharge back to [facility] with venous hospice managing. 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 She presented to the emergency room on January 09, 2024 for weight loss and failure to thrive. She had sustained multiple falls at home at the independent living facility that she lived at from [facility]. Out of concern for her continued physical decline and her inability to adequately care for herself they advised they were unabl
--- NOTE | 2024-01-13 11:26 | PM.DS ---
DS: Admitting Diagnosis Discharge Date 01/13/2024 Admitting Diagnosis 1) Failure to Thrive 2) Metastatic Lung Cancer 3) Malignant Cachexia 4) Hypertension DS: Discharge Diagnosis Discharge Diagnosis (1) Falls: Qualifiers: Encounter type: initial encounter Qualified Code(s): W19.XXXA - Unspecified fall, initial encounter Code(s): W19.XXXA - Unspecified fall, initial encounter Status: Acute Assessment and Plan: 01/10/24: Continue PT and OT Continue fall precaution 01/11/24: No change to current treatment plan 01/13/2024: Date of discharge -patient continues to be high fall risk. She has chosen to discharge back to [facility] on hospice therapy. During the remaining time of her hospitalization she will be monitored closely for safety and falls. (2) Metastatic lung cancer (metastasis from lung to other site): Qualifiers: Laterality: unspecified laterality Qualified Code(s): C34.90 - Malignant neoplasm of unspecified part of unspecified bronchus or lung Code(s): C34.90 - Malignant neoplasm of unspecified part of unspecified bronchus or lung Status: Chronic Assessment and Plan: 01/10/24: Was being followed by Dr. Murillo Stop treatment back in October was on Alimta and Keytruda Contemplating G-tube placement versus hospice, unsure how to proceed Care coordination following for possible hospice referral versus fpc placement 01/11/24: Waiting for daughter to come in from out of town to discuss hospice versus G-tube, and code status. Care coordination following 01/11- discussed with daughter- will proceed with hospice/comfort measures. 01/13/2024: Date of discharge -patient has chosen these hospice and will be discharged home with hospice as soon as [facility] is prepared to accept her once the equipment has been delivered. Patient states her pain is well controlled. (3) Malignant cachexia: Code(s): R64 - Cachexia Status: Acute Assessment and Plan: 01/10/24: jackerman consulted Has lost a total of 50 lb. 01/11/24: Will start Marinol today Very poor intake 01/13/2024: Date of discharge -patient discharging home today with hospice. (4) Benign essential HTN: Code(s): I10 - Essential (primary) hypertension Status: Chronic Assessment and Plan: 01/10/24: Continue metoprolol Continue monitor 01/11/24: No change to current treatment plan 01/13/2024: Date of discharge -no change to current treatment plan, however patient is discharged home today with hospice. Plan Discharge back to [facility] with venous hospice managing. 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 She presented to the emergency room on January 09, 2024 for weight loss and failure to thrive. She had sustained multiple falls at home at the independent living facility that she lived at from [facility]. Out of concern for her continued physical decline and her inability to adequately care for herself they advised they were unable to accept her back on the independent living side. Patient has been faced with the issue of Oncology not wanting to start any further chemotherapy secondary to her dramatic weight loss. Weight today is 54 kilos. Oncology had told her that in order for her to gain weight in the L as well for further chemotherapy she would likely need a G-tube for feedings otherwise she needed to consider hospice. After speaking with her jerad
--- NOTE | 2024-01-13 11:53 | PCNFU ---
Nutrition Follow-Up Complete: Severe protein calorie malnutrition related to chronic cancer as evidenced by weight loss 10%/6 months; inadequate PO intake <75% needs >1 month; severe muscle wasting and fat loss Goal:Adequate PO intake at least 75% meals and supplements Pt not meeting goal but at times progressing Pt current nutrition is Regular, Ensure Enlive TID. Nutrition recommendation: continue with current plan of care Last recorded weight is 54 kg. Bowel Motility: +BM 01/10 Labs Reviewed: Hct:34.8, Alb:3.3, NA:131, Cr:0.5 Meds Noted: zofran, protonix Skin: WNL Additional Notes: Pt continues on a regular diet, intake varied from 10-100%. Ensure Enlive TID ordered. pt and family are choosing to proceed with hospice care, discharge today.
[2024-01-13 12:17] LABS: SARS-CoV-2 RNA PCR Negative (Negative)
[2024-01-13 15:28] VITALS: BP 126/49; PULSE 86; RESP 16; TEMP 37.1; O2SAT 98
== END 2024-01-13 16:50 | disposition hospice, home (50) | DRG 641 ==
LOC: ANHED 15:51 → ANH3MEDSUR 18:42
PROVIDERS: Nurse Practitioner Acute Care; Admitting Provider General Practice; Emergency Provider Emergency Medicine; PCP Family Medicine; Visit Provider Nurse Practitioner Adult Health
DX: R62.7 Adult failure to thrive (principal); R64 Cachexia; C34.90 Malignant neoplasm of unspecified part of unspecified bronchus or lung; Z20.822 Contact with and (suspected) exposure to COVID-19; I10 Essential (primary) hypertension; K44.9 Diaphragmatic hernia without obstruction or gangrene; Z68.20 Body mass index [BMI] 20.0-20.9, adult; Z87.891 Personal history of nicotine dependence; Z90.49 Acquired absence of other specified parts of digestive tract; Z85.820 Personal history of malignant melanoma of skin; Z79.82 Long term (current) use of aspirin; W18.30XA Fall on same level, unspecified, initial encounter
CPT/HCPCS: 36415; 80053; 81001; 85025; 85055; 87635; 87637; 93005; 96360; 96361; 97110; 97116; 97161; 99285; A9270; G0378; J7030; J7120